=== PATIENT | female | born 1930 | race Caucasian/White ===

== ENCOUNTER 2016-08-02 17:31 | Emergency (ER) | payer BC ==
[~2016-08-02] VITALS: Ht 167.6 cm; Wt 43.0 kg
[~2016-08-02 17:31] MED LIST: CALCTAB5 PO; DABI150C PO; DILT-115 PO; LNX125 PO; LZL125 PO; METO25TA3 PO; MULT-506 PO; TMF75 PO
[2016-08-02 17:39] VITALS: TEMP 36.3; Ht 167.6 cm; Wt 43.0 kg
[2016-08-02] MEDS ORDERED: XYLOCAINE 1%/SOD BICARB 20 ML VIAL INFIL ONE (18:00)
[2016-08-02] MEDS ORDERED: FLNIN/ NAE (18:24)
[2016-08-02] MEDS ORDERED: CALC-393 PO (18:24)
[2016-08-02] MEDS ORDERED: FLVHFA220 INH (18:24)
[2016-08-02] MEDS ORDERED: PROAIR INH (18:24)
[2016-08-02 19:03] VITALS: BP 149/82; PULSE 78; O2SAT 96
--- NOTE | 2016-08-02 19:15 | EMERGENCY ROOM VISIT NOTE ---
ED Visit Note First contact with patient: 17:50 I have personally seen and evaluated the patient with the physician chef's assistant. I agree with the diagnostic/management decisions and have personally been involved in these decisions and agree with the diagnosis.
--- NOTE | 2016-08-02 20:27 | EMERGENCY ROOM VISIT NOTE ---
History First contact with patient: 17:50 Chief Complaint: LACERATION/CUT (NON-SUTURE) Stated Complaint: SKIN TEAR ON LF LEG Nursing Triage Summary: Patient has skin tear to inner left lower leg History of Present Illness The patient is a 86 year old female who presents to the Emergency Room with complaints of a laceration to her left lower leg. She reports this injury happened approximately 3 hours ago as she was walking and tripped over her shoe. She denies any significant active bleeding. She has not cleansed the wound. Tetanus immunization is up-to-date, and the patient rates her discomfort a 5 out of 10. Review of Systems 6 system review was performed and was negative except for pertinent positives and negatives as indicated in history of present illness Past Medical/Surgical History Medical Problems: (1) Asthma, Unspecified (2) Chronic Sinusitis Nos (3) COPD (chronic obstructive pulmonary disease) (4) Hypertension Nos (5) Pleural Effusion Nos Family History Insignificnat due to old age Social History Smoking Status: Former Smoker Marital Status: Housing Status: lives with significant other Occupation Status: retired Current/Historical Medications Scheduled Calcium Carbonate (Calcium), 600 MG PO DAILY Dabigatran Etexilate Mesylate (Pradaxa), 150 MG PO BID Diltiazem Hcl Ext Rel (Tiazac), 240 MG PO DAILY Fluticasone Propionate (Fluticasone Propionate), 1 SPRAY TYE DAILY Fluticasone Propionate (Flovent Hfa), 2 PUFF INH BID Indapamide (Indapamide), 1.25 MG PO DAILY Metoprolol Succ (Toprol Xl) (Toprol-Xl), 25 MG PO DAILY Multivitamin (Multivitamin), 1 TAB PO DAILY Scheduled PRN [Proair], 2 SPRAYS INH QID PRN for SOB/Wheezing Allergies Coded Allergies: Sulfa Drugs (Verified Allergy, Mild, RASH, 05/07/14) Physical Exam Vital Signs Date Time Temp Pulse Resp B/P Pulse Ox O2 Delivery O2 Flow Rate FiO2 08/02/16 19:03 78 16 149/82 96 Room Air 08/02/16 17:39 36.3 80 20 151/70 97 Room Air Physical Exam CONSTITUTIONAL: Healthy and well nourished. Alert and oriented X 3 with positive affect. HEENT: Normocephalic, atraumatic. Pupils equal, round and reactive. MUSCULOSKELETAL: Full range of motion of all joints without discomfort. INTEGUMENTARY: Examination of the left medial leg shows a large V-shaped 12 cm laceration without active bleeding. The flap is very thin. No soft tissue loss appreciated. No significant gross wound contamination. Pedal pulses are intact. NEUROLOGIC: Left foot and toes are sensory intact. Medical Decision & Procedures Procedure Laceration repair was performed under local anesthesia after receiving verbal consent from the patient. Using buffered 1% lidocaine without epinephrine, good local anesthesia was administered at the patient's request. The peripheral tissue was then cleansed with iodine. The flap was then retracted and the wound was copiously pressure irrigated with normal saline. At this point, I initially tried Dermabond to reinforce wound edges before attempted closure with 4-0 nylon simple interrupted sutures. This was mostly unsuccessful as the sutures wanted to cut right through the tissue. At this point, I then used benzoin on the wound edges, and the wound was grossly approximated with Steri-Strips. The patient tolerated the procedure well. ED Course Patient history and physical exam were performed. Nurse's notes were reviewed. Vital signs were reviewed and normal. The patient was provided additional verbal and written wound care instructions. Ice as needed for swelling. Tylenol as needed for pain. Suture removal in 12-14 days, or seek reevaluation sooner for any signs of wound infection. The patient was happy with plan of care, voiced understanding of all discharge instructions, and denied any significant pain at the time of discharge. The patient was also seen and evaluated by Dr. Cheney, ED attending physician, who agrees with workup and plan of care. Impression Primary Impression: Laceration of left leg Departure Information Referrals Pritesh Mckinnon M.D. (PCP) Patient Instructions My [facility] Problem Qualifiers Primary Impression: Laceration of left leg Encounter type: initial encounter Qualified Codes: S81.812A - Laceration without foreign body, left lower leg, initial encounter
[2016-08-18] MEDS ORDERED: AMOX500C3 PO (07:53)
[2016-08-18] MEDS ORDERED: AMOX875T PO (07:56)
[2016-08-19] MEDS ORDERED: KFL/250 PO (08:49)
== END 2016-08-02 19:09 | disposition home or self-care (01) ==
LOC: C.EDB 17:32 → C.EDD 19:09
DX: S81.812A Laceration without foreign body, left lower leg, initial encounter (principal); J44.9 Chronic obstructive pulmonary disease, unspecified; I10 Essential (primary) hypertension; Z79.899 Other long term (current) drug therapy; Z86.711 Personal history of pulmonary embolism; Z87.891 Personal history of nicotine dependence; W18.40XA Slipping, tripping and stumbling without falling, unspecified, initial encounter

== ENCOUNTER 2016-08-03 13:30 | Emergency (ER) | payer BC ==
[~2016-08-03] VITALS: Ht 167.6 cm; Wt 47.0 kg
[~2016-08-03 13:30] MED LIST changes: +CALC-393 PO; -CALCTAB5 PO; +FLNIN/ NAE; +FLVHFA220 INH; -LNX125 PO; +PROAIR INH; -TMF75 PO
[2016-08-03 13:34] VITALS: BP 138/74; PULSE 98; TEMP 36.8; O2SAT 96; Ht 167.6 cm; Wt 47.0 kg
--- NOTE | 2016-08-03 20:31 | EMERGENCY ROOM VISIT NOTE ---
History Report prepared by Lorenzo: Noelle Eng Under the Supervision of: Dr. Nino Garcia D.O. First contact with patient: 13:58 Chief Complaint: WOUND RECHECK Stated Complaint: FOLLOW UP ON LACERATION History of Present Illness The patient is a 86 year old female who presents to the Emergency Room for a wound recheck. The patient states that she went to an [employer] yesterday and tripped over her feet. She fell and hit her left lower leg on a chair. She has a wound to the left lower extremity. She came to the ED yesterday for evaluation. Her wound was repaired with sutures, and steri strips. She was told to return with any new or worsening symptoms. The patient' s states that they came back today because the wound was bleeding through the bandaging. The patient denies any new or worsening pain. She does take Pradaxa. Her tetanus is up to date. Source of History: patient, spouse/significant other Onset: yesterday Position: leg (left) Quality: other (wound) Timing: constant Review of Systems See HPI for pertinent positives & negatives. A total of 6 systems reviewed and were otherwise negative. Past Medical & Surgical Medical Problems: (1) Asthma, Unspecified (2) Chronic Sinusitis Nos (3) COPD (chronic obstructive pulmonary disease) (4) Hypertension Nos (5) Pleural Effusion Nos Family History Insignificnat due to old age Social History Smoking Status: Former Smoker Marital Status: Housing Status: lives with significant other Occupation Status: retired Current/Historical Medications Scheduled Calcium Carbonate (Calcium), 600 MG PO DAILY Dabigatran Etexilate Mesylate (Pradaxa), 150 MG PO BID Diltiazem Hcl Ext Rel (Tiazac), 240 MG PO DAILY Fluticasone Propionate (Fluticasone Propionate), 1 SPRAY TYE DAILY Fluticasone Propionate (Flovent Hfa), 2 PUFF INH BID Indapamide (Indapamide), 1.25 MG PO DAILY Metoprolol Succ (Toprol Xl) (Toprol-Xl), 25 MG PO DAILY Multivitamin (Multivitamin), 1 TAB PO DAILY Scheduled PRN [Proair], 2 SPRAYS INH QID PRN for SOB/Wheezing Allergies Coded Allergies: Sulfa Drugs (Verified Allergy, Mild, RASH, 4/16/17) Physical Exam Vital Signs Date Time Temp Pulse Resp B/P Pulse Ox O2 Delivery O2 Flow Rate FiO2 08/03/16 13:34 36.8 98 18 138/74 96 Room Air Physical Exam GENERAL: alert, sitting up in bed, well appearing, well nourished, no distress, non-toxic EYE EXAM: normal conjunctiva OROPHARYNX: Lips, buccal mucosa, and tongue normal and mucous membranes are moist NECK: supple, no nuchal rigidity, no adenopathy, non-tender LUNGS: Clear to auscultation. Normal chest wall mechanics HEART: no murmurs, S1 normal and S2 normal ABDOMEN: abdomen soft, non-tender, normo-active bowel sounds, no masses, no rebound or guarding. LOWER EXTREMITIES: Left lower extremity with a large laceration/avulsion on the left calf, 3 loose steri-strips were removed with multiple steri-strips currently in place with underlying sutures, no active bleeding. No surrounding erythema or discharge. DP are 2/4. Flexion/extension of hip, knee, ankle intact. Gross sensation intact. NEURO EXAM: Normal sensorium Medical Decision & Procedures ED Course ED COURSE: Vital signs were reviewed and showed normal vitals. The patients medical record was reviewed The above diagnostic studies were performed and reviewed. ED treatments and interventions as stated above. 1358: The patient was evaluated in room A10. A complete history and physical examination was performed. 1425: Upon reevaluation, the patient is resting comfortably. She was able to remove her long underwear. I discussed my findings with the patient and she understands and agrees with the treatment plan. Based on the patients age, coexisting illnesses, exam and lab findings the decision to treat as an outpatient was made. The patient remained stable while under my care. The patient appeared well at the time of discharge. Medical Decision Differential diagnosis includes etiologies such as cellulitis, abscess, MRSA infection, DVT, necrotizing fasciitis, dermatitis, drug eruption, as well as others were entertained. Patient is an 86-year-old female who presents the ER following a laceration repair performed yesterday here in the ER. Patient had several sutures and multiple Steri-Strips placed due to the large avulsion. On my exam there is no active bleeding. The wound is closely approximated. I removed 3 Steri-Strips. Her tetanus is up-to-date. There is no active bleeding and the wound was redressed. I had a long discussion with the patient and she notes that she is been very active recently I stressed the importance of not putting stress/ strain on the wound especially since she has a propensity to bleed on her blood thinner. I felt there is no additional benefit to removing the Steri-Strips and replacing them at this time. She was discharged follow-up with her primary care doctor in the next 3-5 days. Discussed with Pt concerning signs and symptoms to watch out for. Pt was instructed to follow up with their PCP and discussed with the patient their option to return to the ED at anytime for persistent or worsening symptoms. The appropriate anticipatory guidance and out- patient management, including indications for return to the emergency department , were explained at length to the patient and understood. Impression Primary Impression: Encounter for wound re-check Scribe Attestation The scribe's documentation has been prepared under my direction and personally reviewed by me in its entirety. I confirm that the note above accurately reflects all work, treatment, procedures, and medical decision making performed by me. Departure Information Dispostion Home / Self-Care Referrals No Doctor, Assigned (PCP) Pritesh Mckinnon M.D. Forms HOME CARE DOCUMENTATION FORM, IMPORTANT VISIT INFORMATION, WORK / SCHOOL INSTRUCTIONS Patient Instructions ED Laceration All, My [facility] Additional Instructions Please follow up with your primary care doctor with in the next 3-5 days. Any worsening of your symptoms, please return to the ED immediately. This includes persistent bleeding, surrounding redness, fevers greater than 100.4, worsening pain, or any other concerning signs or symptoms from your standpoint. Please keep the wound dressed and clean. Please follow up with your primary care doctor in the next 3-5 days.
[2016-08-18] MEDS ORDERED: AMOX500C3 PO (07:53)
[2016-08-18] MEDS ORDERED: AMOX875T PO (07:56)
[2016-08-19] MEDS ORDERED: KFL/250 PO (08:49)
== END 2016-08-03 15:01 | disposition home or self-care (01) ==
LOC: C.EDB 13:32 → C.EDA 15:01
DX: Z48.00 Encounter for change or removal of nonsurgical wound dressing (principal); J45.909 Unspecified asthma, uncomplicated; J44.9 Chronic obstructive pulmonary disease, unspecified; I10 Essential (primary) hypertension; Z87.891 Personal history of nicotine dependence

== ENCOUNTER → 2017-11-04 | Outpatient (CLI) | payer BC ==
[~2017-11-04] MED LIST changes: -DILT-115 PO
[2017-11-04 15:54] LABS: BLOOD UREA NITROGEN 18 mg/dl (7-18); CREATININE 0.97 mg/dl (0.60-1.20)
== END | disposition home or self-care (01) ==
LOC: C.LAB1850 14:06
PROVIDERS: ATTEND Ophthalmology
DX: Z01.89 Encounter for other specified special examinations (principal)

== ENCOUNTER → 2017-12-09 | Outpatient (CLI) | payer BC ==
[2017-12-09 15:38] LABS: BASO % 0.5 %; BASO ABS # 0.06 K/uL (0-0.2); EOS % 4.7 %; EOS ABS # 0.53 K/uL (0-0.5); HEMATOCRIT 41.6 % (37-47); HEMOGLOBIN 13.9 g/dL (12.0-16.0); IG# 0.03 K/uL (0.00-0.02); LYMPH % 27.3 %; LYMPH ABS # 3.08 K/uL (1.2-3.4); MEAN CORPUSCULAR HEMOGLOBIN 30.8 pg (25-34); MEAN CORPUSCULAR HGB CONC 33.4 g/dl (32-36); MEAN PLATELET VOLUME 9.9 fL (7.4-10.4); MONO % 7.5 %; MONO ABS # 0.85 K/uL (0.11-0.59); NEUT % 59.7 %; NEUT ABS # 6.74 K/uL (1.4-6.5); PLATELET COUNT 259 K/uL (130-400); RED CELL DISTRIBUTION WIDTH CV 14.6 % (11.5-14.5); RED CELL DISTRIBUTION WIDTH SD 49.3 fL (36.4-46.3); WHITE BLOOD COUNT 11.29 K/uL (4.8-10.8)
[2017-12-09 16:01] LABS: BLOOD UREA NITROGEN 17 mg/dl (7-18); CALCIUM 9.6 mg/dl (8.5-10.1); CARBON DIOXIDE 30 mmol/L (21-32); CREATININE 0.98 mg/dl (0.60-1.20); GLUCOSE 88 mg/dl (70-99); POTASSIUM 3.7 mmol/L (3.5-5.1); SODIUM 138 mmol/L (136-145)
[2017-12-10 06:13] LABS: HEMOGLOBIN A1C 5.6 % (4.5-5.6)
== END | disposition home or self-care (01) ==
LOC: C.LAB1850 14:32
PROVIDERS: ATTEND Internal Medicine
DX: I10 Essential (primary) hypertension (principal)

== ENCOUNTER 2019-04-27 13:02 | Inpatient (IN) ==
[2019-04-27] MEDS ORDERED: SODIUM CHLORIDE 0.9% 500 ML IV ONE (13:25)
[2019-04-27 14:00] LABS: Basophils # (auto) 0.01 K/uL (0-0.2); Basophils % (auto) 0.1 %; Eosinophils # (auto) 0.07 K/uL (0-0.5); Eosinophils % (auto) 0.7 %; Hematocrit (blood only) 39.3 % (37-47); Hemoglobin 12.9 g/dL (12.0-16.0); Immature Granulocytes # (auto) 0.04 K/uL (0.00-0.02); Immature Granulocytes % (auto) 0.4 %; Lymphocytes # (auto) 2.72 K/uL (1.2-3.4); Lymphocytes % (auto) 26.5 %; Mean Corpuscular Hgb Conc 32.8 g/dL (32-36); Mean Corpuscular Volume 94.5 fL (80-100); Mean Platelet Volume 9.6 fL (7.4-10.4); Monocytes % (auto) 6.8 %; Neutrophils # (auto) 6.73 K/uL (1.4-6.5); Neutrophils % (auto) 65.5 %; Platelet Count 354 K/uL (130-400); RDW Coefficient of Variation 15.2 % (11.5-14.5); Red Blood Count 4.16 M/uL (4.2-5.4); White Blood Count 10.27 K/uL (4.8-10.8)
--- NOTE | 2019-04-27 14:18 | XRay Report ---
XR chest 1V portable CLINICAL HISTORY: Atypical chest pain COMPARISON STUDY: 12/13/2018 FINDINGS: There is a mild scoliosis. The heart is the upper limits of normal in size. The patient is hyperinflated. There is no focal pulmonary consolidation. There is no failure. There are chronic pleu ral changes at the left lung base. 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 Th ere is no pneumothorax. There is left apical pleural calcification. IMPRESSION: No active disease in the chest. ACT 112: Negative or not required by law. Electronically signed by: Rahul Andrade M.D. 04/27/2019 2:17 PM
[2019-04-27 14:25] LABS: Alanine Aminotransferase 12 U/L (12-78); Albumin Level 3.1 gm/dl (3.4-5.0); Aspartate Aminotransferase 13 U/L (15-37); BUN Creatinine Ratio 22.3 (10-20); Blood Urea Nitrogen 20 mg/dl (7-18); Calcium 9.6 mg/dl (8.5-10.1); Carbon Dioxide 30 mmol/L (21-32); Chloride 109 mmol/L (98-107); Est GFR (African American) 66.2; Est GFR (Non-African American) 57.1; Glucose 92 mg/dl (70-99); Lipase 122 U/L (73-393); Magnesium 2.3 mg/dl (1.8-2.4); Sodium 143 mmol/L (136-145)
[2019-04-27 14:38] LABS: Albumin Globulin Ratio 0.7 (0.9-2); Alkaline Phosphatase 58 U/L (45-117); Bilirubin,Total 0.8 mg/dl (0.2-1); Globulin 4.2 gm/dl (2.5-4.0); Phosphorus 2.6 mg/dl (2.5-4.9); Total Protein 7.3 gm/dl (6.4-8.2); Troponin I 0.047 ng/ml (0-0.045)
[2019-04-27 14:51] LABS: Appearance Urine Clear (Clear); Bacteria Urine Automated Negative (Negative); Blood Urine Negative (Negative); Color Urine Dark Yellow; Epithelial Cell Urine Auto 20-30 /lpf (0-5); Glucose Urine UA Negative (Negative); Ketones Urine Trace (Negative); Leukocyte Esterase Urine Trace (Negative); Nitrite Urine Negative (Negative); Protein Urine 1+ (Negative); RBC Urine Automated 0-4 /hpf (0-4); Specific Gravity Urine 1.026 (1.000-1.030); Urobilinogen Urine Negative (Negative)
[2019-04-27 14:59] LABS: Bilirubin Urine Negative (Negative); Ictotest Urine Negative (Negative)
--- NOTE | 2019-04-27 15:12 | CT Scan Report ---
CT head/brain wo con CT DOSE: 1074.96 mGy.cm HISTORY: Mental status change weakness, confusion TECHNIQUE: Multiaxial CT images of the head were performed without the use of intravenous contrast. A dose lowering technique was utilized adhering to the principles of ALARA. Comparison: 12/04/2018 Findings: Moderate mucosal thickening of the sphenoid and ethmoid sinuses. Mastoid air cells show min imal sclerosis. The brain specifically shows evidence for generalized atrophy. 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 There are no new or interval findings. There is no midline shift. There is mild compensatory prominence of the ventricular system. Impression: Chronic and pre-existing change. No acute process. Mucosal thickening of the sphenoid and ethmoid sin uses. ACT 112: Negative or not required by law. The above report was generated using voice recognition software. It may contain grammatical, syntax or spelling errors. Electronically signed by: Ky Miner M.D. 04/27/2019 3:11 PM
--- NOTE | 2019-04-27 15:34 | Electrocardiogram Report ---
Test Reason : Blood Pressure : / mmHG Vent. Rate : 058 BPM Atrial Rate : 066 BPM P-R Int : 000 ms QRS Dur : 086 ms QT Int : 386 ms P-R-T Axes : 000 087 -75 degrees QTc Int : 378 ms Poor data quality, interpretation may be adversely affected Atrial fibrillation with slow ventricular response Voltage criteria for left ventricular hypertrophy Cannot rule out Septal infarct (cited on or before 14-OCT-2018) Abnormal ECG When compared with ECG of 13-DEC-2018 17:32, Atrial fibrillation has replaced Atrial flutter Vent. rate has decreased BY [address] no longer elevated in Inferior leads ST no longer depressed in Lateral leads Confirmed by Joey Amador ([id number]) on 04/27/2019 3:33:50 PM Referred By: REFERRED SELF Confirmed By:Joey Amador
--- NOTE | 2019-04-27 18:39 | Emergency Department Note ---
Entered by Kylie Spencer acting as a scribe for Forest Pettit MD History of Present Illness General Chief complaint: Weakness Stated complaint: WEAKNESS, DEMENTIA Time Seen by Provider: 04/27/19 13:24 Source: family and other (physician) History of Present Illness Onset (ago): day(s) 1 Location: head (weakness) Severity: similar to prior episodes Pain Consistency: + other (persistent) Maximum Pain Intensity: 0 Quality: + other (weakness) Exacerbated By: + other (diuretic) Associated symptoms: + confusion, + weakness and + other (tachycardia, inability to urinate) The patient is an 89 year old female presenting to the Emergency Department complaining of persistent weakness starting 1 day ago. The patients reports that the patient is very weak and confused. He states that the patient has experienced these symptoms before as she has dementia but that her confusion is worse than normal. He explains that the patient takes a lot of medications and that something may be wrong with her diuretic. He notes that the patient follows with Dr. Mckinnon bilingual teacher aide. He adds that the patient hasnt been able to urinate. The patients bilingual teacher aide Dr. Mckinnon called and reported that he referred the patient to the Emergency Room today because he feared the patients diuretic was causing the patient to become tachycardic. 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 He notes that the patient has an appointment with himself tomorrow. Home Medications Home Medications Medication Instructions Recorded Confirmed Type apixaban [Eliquis] 2.5 mg PO AMPM 10/14/18 04/27/19 History indapamide 1.25 mg tablet 1.25 mg PO MOWEFR tab 11/26/18 04/27/19 History metoprolol succinate 50 mg 50 mg PO QAM 01/18/19 04/27/19 History tablet,extended release 24 hr digoxin 125 mcg PO QAM 04/27/19 04/27/19 History fluticasone propionate [Flonase 2 sprays INTRANASAL QAM 04/27/19 04/27/19 History Allergy Relief] fluticasone propionate [Flovent 2 puffs INHALATION QAM 04/27/19 04/27/19 History HFA] megestrol 400 mg PO QAM 04/27/19 04/27/19 History memantine 5 mg PO AMPM 04/27/19 04/27/19 History Allergies Allergy/AdvReac Type Severity Reaction Status Date / Time Sulfa (Sulfonamide Allergy Mild RASH Verified 04/27/19 14:10 Antibiotics) INDIGO Inhibitors Allergy Unknown Rash Verified 04/27/19 14:10 amoxicillin [From Augmentin] Allergy Unknown Diarrhea Verified 04/27/19 14:10 clavulanic acid Allergy Unknown Diarrhea Verified 04/27/19 14:10 [From Augmentin] Past Med/Surg History Medical History Abnormal electrocardiogram (Acute) Acquired deviated nasal septum (Acute) Chronic sinusitis (Acute) COPD (chronic obstructive pulmonary disease) (Chronic) COPD (chronic obstructive pulmonary disease) (Chronic) Dementia (Chronic) Glaucoma of both eyes (Acute) 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) Hyperglycemia (Acute) Hypertension (Chronic) Intrinsic asthma (Chronic) Laceration of arm (Inactive) Nasal polyps Orthostatic hypotension (Resolved) Osteoporosis (Acute) Paroxysmal atrial fibrillation (Chronic) Pleural effusion on left (Resolved) Pneumonia (Resolved) Premature ventricular contractions (Acute) Syncope (Resolved) Surgical History Hx of cataract surgery Family History Mother Hypertension Kidney disease Social History Preferred Language: Croatian Communication Ability: Impaired 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 and A total of 10 systems reviewed and were otherwise negative Physical Exam Vital Signs Vital Signs - 24 hr 04/27/19 13:17 04/27/19 14:02 04/27/19 14:09 Pulse Rate 105 H 58 L 66 Pulse Rate [Right Finger] Pulse Rate from SpO2 Sensor Pulse Rhythm Regular Pulse Strength Normal Respiratory Rate 22 25 H 33 H Respiratory Effort / Characteristics Non-Labored Respiratory Depth Normal Respiratory Pattern Regular Blood Pressure 150/67 H 153/83 H Blood Pressure [Left Arm] Blood Pressure Mean 94 103 Blood Pressure Mean [Left Arm] Blood Pressure Position Sitting Pulse Oximetry 98 Oxygen Delivery Method Room Air Sepsis Recent Fever Within 48 Hours No Sepsis Action Taken by Nursing No Action Required 04/27/19 14:25 04/27/19 14:30 04/27/19 14:31 Pulse Rate 49 L 65 Pulse Rate [Right Finger] 64 Pulse Rate from SpO2 Sensor Pulse Rhythm Pulse Strength Respiratory Rate 24 22 28 H Respiratory Effort / Characteristics Respiratory Depth Respiratory Pattern Blood Pressure 120/84 Blood Pressure [Left Arm] 120/84 Blood Pressure Mean 112 Blood Pressure Mean [Left Arm] 96 Blood Pressure Position Pulse Oximetry 99 Oxygen Delivery Method Room Air Sepsis Recent Fever Within 48 Hours Sepsis Action Taken by Nursing 04/27/19 15:04 04/27/19 15:30 04/27/19 16:00 Pulse Rate 41 L 58 L Pulse Rate [Right Finger] Pulse Rate from SpO2 Sensor 70 67 Pulse Rhythm Pulse Strength Respiratory Rate 9 L 31 H 24 Respiratory Effort / Characteristics Respiratory Depth Respiratory Pattern Blood Pressure 148/71 H 135/53 L Blood Pressure [Left Arm] Blood Pressure Mean 93 81 Blood Pressure Mean [Left Arm] Blood Pressure Position Pulse Oximetry 73 L 93 Oxygen Delivery Method Sepsis Recent Fever Within 48 Hours Sepsis Action Taken by Nursing 04/27/19 16:01 04/27/19 16:30 04/27/19 17:00 Pulse Rate 59 L 53 L 60 Pulse Rate [Right Finger] Pulse Rate from SpO2 Sensor 70 Pulse Rhythm Pulse Strength Respiratory Rate 20 19 15 Respiratory Effort / Characteristics Respiratory Depth Respiratory Pattern Blood Pressure 131/46 L Blood Pressure [Left Arm] Blood Pressure Mean 79 Blood Pressure Mean [Left Arm] Blood Pressure Position Pulse Oximetry 94 Oxygen Delivery Method Sepsis Recent Fever Within 48 Hours Sepsis Action Taken by Nursing 04/27/19 17:32 04/27/19 17:33 04/27/19 18:00 Pulse Rate 66 64 75 Pulse Rate [Right Finger] Pulse Rate from SpO2 Sensor Pulse Rhythm Pulse Strength Respiratory Rate 26 H 22 15 Respiratory Effort / Characteristics Respiratory Depth Respiratory Pattern Blood Pressure 165/62 H Blood Pressure [Left Arm] Blood Pressure Mean 98 Blood Pressure Mean [Left Arm] Blood Pressure Position Pulse Oximetry Oxygen Delivery Method Sepsis Recent Fever Within 48 Hours Sepsis Action Taken by Nursing 04/27/19 18:01 04/27/19 18:30 01/08/20 18:31 Pulse Rate 65 62 58 L Pulse Rate [Right Finger] Pulse Rate from SpO2 Sensor Pulse Rhythm Pulse Strength Respiratory Rate 23 20 17 Respiratory Effort / Characteristics Respiratory Depth Respiratory Pattern Blood Pressure 183/83 H 140/64 Blood Pressure [Left Arm] Blood Pressure Mean 111 98 Blood Pressure Mean [Left Arm] Blood Pressure Position Pulse Oximetry Oxygen Delivery Method Sepsis Recent Fever Within 48 Hours Sepsis Action Taken by Nursing 04/27/19 18:32 Pulse Rate 63 Pulse Rate [Right Finger] Pulse Rate from SpO2 Sensor Pulse Rhythm Pulse Strength Respiratory Rate 20 Respiratory Effort / Characteristics Respiratory Depth Respiratory Pattern Blood Pressure Blood Pressure [Left Arm] Blood Pressure Mean Blood Pressure Mean [Left Arm] Blood Pressure Position Pulse Oximetry Oxygen Delivery Method Sepsis Recent Fever Within 48 Hours Sepsis Action Taken by Nursing GENERAL: Pleasantly confused Awake, alert, cachectic-appearing, in no distress HENT: Normocephalic, atraumatic. Oropharynx with dry mucous membranes and otherwise unremarkable. EYES: Normal conjunctiva. Sclera non-icteric. NECK: Supple. No nuchal rigidity. FROM. No JVD. RESPIRATORY: CTAB. CARDIAC: Regular rate, Irregular rhythm. Extremities warm and well perfused. Pulses equal. ABDOMEN: Soft, non-distended. No tenderness to palpation. No rebound or guarding. No masses. RECTAL: Deferred. MUSCULOSKELETAL: Chest examination reveals no tenderness. The back is symmetrical on inspection without obvious abnormality. There is no CVA tenderness to palpation. No joint edema. LOWER EXTREMITIES: Calves are equal size bilaterally and non-tender. No edema. No discoloration. NEURO: Normal sensorium. No sensory or motor deficits noted. Moving all extremities equally. SKIN: No rash or jaundice noted. Course Course 1326: The patient was evaluated in room C2B, and a complete history and physical examination were performed. 1639: I reevaluated the patient at this time and updated she and her on her lab work and imaging studies. 1655: I discussed the patients case with Dr. Mckinnon bilingual teacher aide who agrees t hat there could be an underlying tachycardia bradycardia syndrome. Recommends bringing the patient in for observation. He adds to hold off on the patients beta ming. 1710: I discussed the patients case with Dr. Peters neuropsychology division chief. Agrees admission for observation is reasonable. 1730: I discussed the patients case with Dr. Edgar [facility] hospitalist. She will evaluate the patient for further management. Administered Medications Apixaban (Eliquis) 2.5 mg PO BID DINO Stop: 05/27/19 20:59 Last Admin: 04/27/19 21:00 Dose: 2.5 mg Documented by: [id number] Sodium Chloride (Nss 1000ml) 1,000 mls @ 80 mls/hr IV .[id number] DINO Stop: 04/28/19 08:16 Last Admin: 04/27/19 20:59 Dose: 80 mls/hr Documented by: [id number] Ceftriaxone Sodium 2,000 mg/ (Dextrose) 70 mls @ 140 mls/hr IV Q24H DINO Stop: 05/02/19 19:59 Last Infusion: 04/27/19 21:30 Dose: 0 mls/hr Documented by: [id number] Admin: 04/27/19 21:00 Dose: 140 mls/hr Documented by: [id number] Memantine (Namenda) 5 mg PO BID DINO Stop: 05/27/19 20:59 Last Admin: 04/27/19 21:00 Dose: 5 mg Documented by: [id number] Discontinued Medications Sodium Chloride (Nss) 500 mls @ 999 mls/hr IV .Q31M ONE Stop: 04/27/19 13:55 Last Infusion: 04/27/19 15:17 Dose: 0 mls/hr Documented by: [id number] Admin: 04/27/19 14:42 Dose: 999 mls/hr Documented by: [id number] Medical Decision Making Differential Diagnosis Differential Diagnosis includes but is not limited to dehydration, stroke, anemia, hypoglycemia, hyponatremia, hypernatremia, urinary tract infection, pneumonia, bronchitis, sepsis, gastroenteritis, additional abdominal pathology, metabolic abnormalities and infections. Medical Records Attestation: I reviewed the patient's medical records. Home Medications Current Medication List: was personally reviewed by me Laboratory Data Attestation: I reviewed the patient's lab results. Result diagrams: 04/27/19 13:55 04/27/19 13:55 Lab Results 04/27/19 04/27/19 04/27/19 Range/Units 13:55 13:55 14:27 WBC 10.27 (4.8-10.8) K/uL RBC 4.16 L (4.2-5.4) M/uL Hgb 12.9 (12.0-16.0) g/dL Hct 39.3 (37-47) % MCV 94.5 (80-100) fL MCH 31.0 (25-34) pg MCHC 32.8 (32-36) g/dL RDW Std Deviation 53.0 H (36.4-46.3) fL RDW Coeff of Zack 15.2 H (11.5-14.5) % Plt Count 354 (130-400) K/uL MPV 9.6 (7.4-10.4) fL Immature Gran % (Auto) 0.4 % Neut % (Auto) 65.5 % Lymph % (Auto) 26.5 % [place] % (Auto) 6.8 % Eos % (Auto) 0.7 % Baso % (Auto) 0.1 % Immature Gran # (Auto) 0.04 H (0.00-0.02) K/uL Neut # (Auto) 6.73 H (1.4-6.5) K/uL Lymph # (Auto) 2.72 (1.2-3.4) K/uL [place] # (Auto) 0.70 H (0.11-0.59) K/uL Eos # (Auto) 0.07 (0-0.5) K/uL Baso # (Auto) 0.01 (0-0.2) K/uL Sodium 143 (136-145) mmol/L Potassium 4.0 (3.5-5.1) mmol/L Chloride 109 H (98-107) mmol/L Carbon Dioxide 30 (21-32) mmol/L Anion Gap 4.0 (3-11) BUN 20 H (7-18) mg/dl Creatinine 0.90 (0.6-1.2) mg/dl Est Cr Clr Drug Dosing Not Reportable Est GFR ( Amer) 66.2 Est GFR (Non-Af Amer) 57.1 BUN/Creatinine Ratio 22.3 H (10-20) Glucose 92 (70-99) mg/dl Calcium 9.6 (8.5-10.1) mg/dl Phosphorus 2.6 (2.5-4.9) mg/dl Magnesium 2.3 (1.8-2.4) mg/dl Total Bilirubin 0.8 (0.2-1) mg/dl AST 13 L (15-37) U/L ALT 12 (12-78) U/L Alkaline Phosphatase 58 (45-117) U/L Troponin I 0.047 H* (0-0.045) ng/ml Total Protein 7.3 (6.4-8.2) gm/dl Albumin 3.1 L (3.4-5.0) gm/dl Globulin 4.2 H (2.5-4.0) gm/dl Albumin/Globulin Ratio 0.7 L (0.9-2) Lipase 122 (73-393) U/L TSH 2.120 (0.300-4.500) uIu/ml Urine Color Dark Yellow Urine Appearance Clear (Clear) Urine pH 7.0 (4.5-7.5) Ur Specific [place] 1.026 (1.000-1.030) Urine Protein 1+ H (Negative) Urine Glucose (UA) Negative (Negative) Urine Ketones Trace H (Negative) Urine Blood Negative (Negative) Urine Nitrite Negative (Negative) Urine Bilirubin Negative (Negative) Urine Urobilinogen Negative (Negative) Ur Leukocyte Esterase Trace H (Negative) Urine WBC (Auto) 1-5 (0-5) /hpf Urine RBC (Auto) 0-4 (0-4) /hpf U Hyaline Cast (Auto) 1-5 (0-5) /lpf U Epithel Cells (Auto) 20-30 H (0-5) /lpf Urine Bacteria (Auto) Negative (Negative) Imaging Data Radiologist's Impression: Radiology results as stated below per my review and the radiologist's interpretation: CT head/brain wo con CT DOSE: 1074.96 mGy.cm HISTORY: Mental status change weakness, confusion TECHNIQUE: Multiaxial CT images of the head were performed without the use of intravenous contrast. A dose lowering technique was utilized adhering to the principles of ALARA. Comparison: 12/04/2018 Findings: Moderate mucosal thickening of the sphenoid and ethmoid sinuses. Mastoid air cells show minimal sclerosis. The brain specifically shows evidence for generalized atrophy. 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 There are no new or interval findings. There is no midline shift. There is mild compensatory prominence of the ventricular system. Impression: Chronic and pre-existing change. No acute process. Mucosal thickening of the sphenoid and ethmoid sinuses. ACT 112: Negative or not required by law. The above report was generated using voice recognition software. It may contain grammatical, syntax or spelling errors. Electronically signed by: Ky Miner M.D. 04/27/2019 3:11 PM XR chest 1V portable CLINICAL HISTORY: Atypical chest pain COMPARISON STUDY: 12/13/2018 FINDINGS: There is a mild scoliosis. The heart is the upper limits of normal in size. The patient is hyperinflated. There is no focal pulmonary consolidation. There is no failure. There are chronic pleural changes at the left lung base. 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 There is no pneumothorax. There is left apical pleural calcification. IMPRESSION: No active disease in the chest. ACT 112: Negative or not required by law. Electronically signed by: Rahul Andrade M.D. 04/27/2019 2:17 PM ECG Data Attestation: I personally reviewed and interpreted this ECG as follows: Indication: + weakness Rate (beats per minute): 58 Rhythm: + atrial fibrillation ECG ST segments: no ST elevation ECG Findings: + Other (ST and T wave abnormalities. QT-c 378. QRS 86.) Comparison ECG Date: from (12/13/18) Change: no significant change Blood Pressure Blood Pressure Findings: Elevated blood pressure Blood Pressure Disposition: further management by hospitalist MDM Narrative The patient is a pleasant 84-year-old woman with a past medical history of dementia, A. fib on Eliquis who presents emergency department with generalized weakness and confusion from her baseline with "weak spells"/near syncope per HPI. On arrival the patient is pleasantly confused but no acute distress, afebrile with stable vital signs. Patient's rate initially was in the low 100s and there was report of having episodes of tachycardia prior to arrival. Appears cachectic and dry. Moving all extremities equally without focal deficits. EKG demonstrates A. fib without overt acute ischemia and was similar to prior. Rate at this time was in the 50s. Chest x-ray negative for acute process. CT head negative for acute process, otherwise old left parietal occipital infarct which is unchanged. WBC, H/H and platelets within normal limits. Chemistry without acidosis. Electrolytes and LFTs unremarkable. Troponin slightly elevated at 0.047 which may be related to the patient's clinically dry appearance. On reevaluation it was noted that the patient would have fluctuating heart rate that would go down as low as the 40s. Thus, suspicion was raised for possible underlying tachybradycardia syndrome. I did recommend to the patient and her admission for further monitoring. Case was additionally discussed with Dr. Mckinnon who also recommended admission for observation. I did also discuss the case with not any cardiology, Dr. Peters, who the patient follows with and also agreed that admission would be reasonable. Case was discussed with Dr Edgar, [facility] hospitalist, who evaluate the patient for admission. Impression & Plan Near syncope, Elevated troponin, Dehydration, Tachycardia, Bradycardia, Atrial fibrillation, On apixaban therapy Discharge Plan Visit Data *Final* Discharge Date/Time: 04/27/19 19:20 Chief Complaint: Weakness Stated Complaint: WEAKNESS, DEMENTIA ED Provider: Forest Pettit Discharge Problem: Near syncope, Elevated troponin, Dehydration, Tachycardia, Bradycardia, Atrial fibrillation, On apixaban therapy Patient Disposition: Admitted As Inpatient Discharge Instructions Interventions: ED Discharge Assessment Last Done: 04/27/19 19:20 The scribe's documentation has been prepared under my direction and personally reviewed by me in its entirety. I confirm that the note above accurately reflects all work, treatment, procedures, and medical decision making performed by me.
[2019-04-27] MEDS ORDERED: ALUMINUM/MAGNESIUM SUSP 30 ML UDC PO PRN (19:47)
[2019-04-27] MEDS ORDERED: POLYETHYLENE (MIRALAX) 17 GM PACK PO PRN (19:47)
[2019-04-27] MEDS ORDERED: MAGNESIUM HYDROXIDE SUSP 30 ML UDC PO PRN (19:47)
[2019-04-27] MEDS ORDERED: ONDANSETRON INJ 2 MG/ML 2 ML VIAL IV PRN (19:47)
[2019-04-27] MEDS ORDERED: SODIUM CHLORIDE 0.9% 1000ML 1,000 ML IV SCH (19:47)
[2019-04-27] MEDS ORDERED: ACETAMINOPHEN 325 MG TAB PO PRN (19:47)
[2019-04-27] MEDS ORDERED: cefTRIAXone SODIUM 2,000 MG/70 ML BAG IV SCH (20:00)
[2019-04-27] MEDS: cefTRIAXone SODIUM 2,000 MG in DEXTROSE 5% 50 ML IV SCH (21:00)
[2019-04-27] MEDS: APIXABAN 2.5 MG TAB PO SCH (21:00)
[2019-04-27] MEDS: MEMANTINE HCL 5 MG TAB PO SCH (21:00)
--- NOTE | 2019-04-28 02:48 | History & Physical Report ---
Date of Service April 27, 2019 Assessment & Plan (1) Elevated troponin: Admit to telemetry for observation Vital signs every 4 hours Trend down troponins Continue home medicine apixaban 2.5 mg p.o. twice daily Digoxin 125 mg p.o. every morning Metoprolol succinate 50 mg p.o. every morning DVT prophylaxis with apixaban Full code Present on Admission?: Yes (2) Dehydration: Continue gentle IV fluid hydration Follow-up electrolytes closely Present on Admission?: Yes (3) Near syncope: Most likely provoked by dehydration CT of the head no acute findings Present on Admission?: Yes (4) Atrial fibrillation: Continue apixaban 2.5 mg p.o. twice daily Present on Admission?: Yes (5) Dementia: Continue memantine 5 mg p.o. twice daily Follow-up with Dr. Greenfield neurology Present on Admission?: Yes (6) Hypertension: Stable , continue digoxin 125 MCG's p.o. every morning, metoprolol 50 mg p.o. every morning, continue indapamide 1.25 mg p.o. Thursday/Thursday/Thursday. Present on Admission?: Yes (7) Intrinsic asthma: Stable, continue fluticasone propionate 2 puffs inhalation every morning, and fluticasone propionate 2 sprays intranasal every morning. Present on Admission?: Yes (8) Failure to thrive: Continue Fernando Strohl 400 mg p.o. every morning Present on Admission?: Yes History of Present Illness Chief Complaint: Elevated troponin ,confusion, tachycardia-bradycardia syndrome Primary Care Provider: Pritesh Mckinnon MD Patient is a 89 years old female with past medical history of paroxysmal atrial fibrillation on Eliquis, hypertension, glaucoma of both eyes, dementia who presents to the emergency room complaining of persistent weakness starting 1 day ago. The patient's reports that patient is very weak and confused. He states that the patient has experienced these symptoms before she has dementia but that her confusion is worse than normal. He explains that patient takes a lot of medications and sometimes she makes them up. Patient is followed by nephrology Dr. Mckinnon. For the past 24 hours patient was not able to urinate. Patient is poor historian and it is difficult to obtain ROS with her. The major history was obtained from her . EKG reviewed and shows atrial fibrillation has replaced atrial flutter. Ventricular rate is decreased by [address] no longer elevated in inferior leads. ST no longer depressed in the lateral leads. Patient sees Dr. 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 Donepezil was recently discontinued because patient could not tolerate it. Dr. Greenfield continued with Namenda since patient tolerates that very well. Patient supposed to follow-up with him in 8 months. Labs are reviewed: WBC 7.27, hemoglobin 12.9, hematocrit 39.3, platelets 354, sodium 143, potassium 4, chloride 109, anion gap 4, BUN 20. Decision was made to admit patient to telemetry for observation for dehydration, acute on chronic confusion, and elevated troponin. Allergies Allergy/AdvReac Type Severity Reaction Status Date / Time Sulfa (Sulfonamide Allergy Mild RASH Verified 04/27/19 14:10 Antibiotics) INDIGO Inhibitors Allergy Unknown Rash Verified 04/27/19 14:10 amoxicillin [From Augmentin] Allergy Unknown Diarrhea Verified 04/27/19 14:10 clavulanic acid Allergy Unknown Diarrhea Verified 04/27/19 14:10 [From Augmentin] Home Medications Home Medications Medication Instructions Recorded Confirmed Type apixaban [Eliquis] 2.5 mg PO AMPM 10/14/18 04/27/19 History indapamide 1.25 mg tablet 1.25 mg PO MOWEFR tab 11/26/18 04/27/19 History metoprolol succinate 50 mg 50 mg PO QAM 01/18/19 04/27/19 History tablet,extended release 24 hr digoxin 125 mcg PO QAM 04/27/19 04/27/19 History fluticasone propionate [Flonase 2 sprays INTRANASAL QAM 04/27/19 04/27/19 History Allergy Relief] fluticasone propionate [Flovent 2 puffs INHALATION QAM 04/27/19 04/27/19 History HFA] megestrol 400 mg PO QAM 04/27/19 04/27/19 History memantine 5 mg PO AMPM 04/27/19 04/27/19 History Past Med/Surg History Medical History Abnormal electrocardiogram (Acute) Acquired deviated nasal septum (Acute) Chronic sinusitis (Acute) COPD (chronic obstructive pulmonary disease) (Chronic) COPD (chronic obstructive pulmonary disease) (Chronic) Dementia (Chronic) Glaucoma of both eyes (Acute) 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) Hyperglycemia (Acute) Hypertension (Chronic) Intrinsic asthma (Chronic) Laceration of arm (Inactive) Nasal polyps Orthostatic hypotension (Resolved) Osteoporosis (Acute) Paroxysmal atrial fibrillation (Chronic) Pleural effusion on left (Resolved) Pneumonia (Resolved) Premature ventricular contractions (Acute) Syncope (Resolved) Surgical History Hx of cataract surgery Family History Mother Hypertension Kidney disease Social History Preferred Language: Divehi Communication Ability: Impaired Informaticist Required: No Beliefs That Will Affect Care: None Current Living Situation: Spouse Current Living Situation Comment: House current occupational status: retired Other Information That Helps Us Care for You: No Feels Safe at Home: Yes Smoking Status: Former smoker Hx Alcohol Use: No Hx Substance Use: No Review of Systems Review of Systems: All systems reviewed & are unremarkable except as noted in HPI & below Physical Exam Constitutional: WD/WN, vitals as above + ill appearing and + cachectic Eyes: PERRL, conjunctivae normal, anicteric sclerae ENMT: external ear and nose normal, oropharynx normal Neck: trachea midline, no thyromegaly Respiratory: normal respiratory effort, lungs clear to auscultation Cardiovascular: Rate/Rhythm: + irregularly irregular Heart Sounds: normal S1 and normal S2 Vessels: dorsalis pedis pulses present Gastrointestinal (Abdomen): normal bowel sounds, soft, nontender, no hepatosplenomegaly Musculoskeletal: no cyanosis or clubbing, extremities motor strength 5/5 Skin: no rashes, warm and dry Neurologic: PERRL, EOMI, accommodation nl, no face palsy, no dysarthria Psychiatric: Insight: + limited insight Patient exhibits severe mixed dementia Lymphatic: no cervical or axillary lymphadenopathy Results & Data Vital Signs (Past 12 Hours) Vital Signs Temp Pulse Pulse Resp BP BP Pulse Ox 04/27/19 23:36 51 L 04/27/19 23:07 36.8 C 101 H 16 135/58 L 97 04/27/19 19:47 36.4 C L 42 L 20 161/72 H 99 04/27/19 19:01 54 L 18 148/67 H 04/27/19 19:00 55 L 25 H 04/27/19 18:32 63 20 04/27/19 18:31 58 L 17 140/64 04/27/19 18:30 62 20 04/27/19 18:01 65 23 183/83 H 04/27/19 18:00 75 15 04/27/19 17:33 64 22 04/27/19 17:32 66 26 H 165/62 H 04/27/19 17:00 60 15 04/27/19 16:30 53 L 19 131/46 L 04/27/19 16:01 59 L 20 94 04/27/19 16:00 58 L 24 135/53 L 93 04/27/19 15:30 41 L 31 H 148/71 H 73 L 04/27/19 15:04 9 L 04/27/19 14:31 65 28 H 120/84 04/27/19 14:30 49 L 22 04/27/19 14:25 64 24 120/84 99 04/27/19 14:09 66 33 H 153/83 H 04/27/19 14:02 58 L 25 H Code Status & VTE Plan Code Status Full code VTE Prophylaxis Plan VTE Prophylaxis will be ordered: Yes PG Care Time/CCT Total # of Minutes Spent Total Time Spent with Patient: Total time spent is greater than 50% in coordination of care (as documented) at patient's floor/unit and/or counseling patient:
[2019-04-28 06:20] LABS: Basophils # (auto) 0.01 K/uL (0-0.2); Basophils % (auto) 0.1 %; Eosinophils # (auto) 0.11 K/uL (0-0.5); Eosinophils % (auto) 1.4 %; Hematocrit (blood only) 36.6 % (37-47); Hemoglobin 11.9 g/dL (12.0-16.0); Immature Granulocytes # (auto) 0.03 K/uL (0.00-0.02); Immature Granulocytes % (auto) 0.4 %; Lymphocytes % (auto) 32.9 %; Mean Corpuscular Hemoglobin 30.8 pg (25-34); Mean Corpuscular Hgb Conc 32.5 g/dL (32-36); Mean Corpuscular Volume 94.8 fL (80-100); Mean Platelet Volume 9.6 fL (7.4-10.4); Monocytes # (auto) 0.57 K/uL (0.11-0.59); Monocytes % (auto) 7.5 %; Neutrophils # (auto) 4.37 K/uL (1.4-6.5); Neutrophils % (auto) 57.7 %; Platelet Count 318 K/uL (130-400); RDW Coefficient of Variation 15.2 % (11.5-14.5); RDW Standard Deviation 52.2 fL (36.4-46.3); Red Blood Count 3.86 M/uL (4.2-5.4); White Blood Count 7.59 K/uL (4.8-10.8)
[2019-04-28 06:55] LABS: Chol HDL Ratio 7; Cholesterol 188 mg/dl (0-200); HDL Cholesterol 28 mg/dl; LDL Cholesterol Calculated 137 mg/dl; Triglycerides 116 mg/dl (0-150); VLDL Cholesterol 23 mg/dl
[2019-04-28 08:11] LABS: Estimated Average Glucose 111 mg/dl; Hemoglobin A1C 5.5 % (4.5-5.6)
[2019-04-28] MEDS ORDERED: AMLODIPINE BESYLATE 5 MG TAB PO ONE (08:15)
[2019-04-28] MEDS: MEMANTINE HCL 5 MG TAB PO SCH ×2 (08:33→21:30)
[2019-04-28] MEDS: APIXABAN 2.5 MG TAB PO SCH ×2 (08:34→21:30)
[2019-04-28] MEDS: FLUTICASONE PROPIONATE NA SPR 16 GM BTL SCH (08:34)
[2019-04-28] MEDS: MEGESTROL ACETATE SUSP 400 MG/10 ML UDC PO SCH (08:34)
[2019-04-28] MEDS: FLUTICASONE HFA 220 MCG INHALER INH SCH (08:35)
[2019-04-28] MEDS ORDERED: METOPROLOL SUCC 50MG EXT REL TAB PO SCH (09:00)
--- NOTE | 2019-04-28 15:35 | Hospitalist Progress Note ---
Date of Service April 28, 2019 Assessment & Plan (1) Elevated troponin: minimally elevated at 0.04 and 0.06 no chest pain, no EKG changes no signs of ACS, no further work up planned (2) Dehydration: Continue gentle IV fluid hydration electrolytes stable reported that she was not making much urine, bladder scan with only 220 straight cath once, will monitor closely (3) Near syncope: could be due to bradycardia holding Toprol, will monitor her HR will get PT/OT while here CT of the head no acute findings (4) Atrial fibrillation: Continue apixaban 2.5 mg p.o. twice daily (5) Dementia: Continue memantine 5 mg p.o. twice daily Follow-up with Dr. Greenfield neurology (6) Hypertension: Stable , continue digoxin 125 MCG's p.o. every morning, continue indapamide 1.25 mg p.o. Thursday/Thursday/Thursday. HOLD metoprolol due to bradycardia (7) Intrinsic asthma: Stable, continue fluticasone propionate 2 puffs inhalation every morning, and fluticasone propionate 2 sprays intranasal every morning. no wheezing or distress on exam (8) Failure to thrive: Continue Fernando Strohl 400 mg p.o. every morning us customs and border officer to see she has protein calorie malnutrition, reports 15-20 lb weight loss in past year Subjective patient doing fine today, no major issues she cannot provide history, here at the bedside from what I can gather she was just getting weak and falling intermittently she was not losing consciousness she never had an injury on the monitor her HR is in the 40-50's, Toprol held this morning discussed with Dr Mckinnon, her PCP, he has been trying to limit her rate control meds for a while got her off Diltiazem and was titrating down on Toprol will ask PT/OT to see her Review of Systems Review of Systems: Unobtainable due to cognitive status (dementia) Physical Exam Constitutional: WD/WN, vitals as above + thin and + underweight Eyes: PERRL, conjunctivae normal, anicteric sclerae ENMT: external ear and nose normal, oropharynx normal Neck: trachea midline, no thyromegaly Respiratory: normal respiratory effort, lungs clear to auscultation Cardiovascular: Rate/Rhythm: + bradycardic and + irregularly irregular Heart Sounds: normal S1 and normal S2; no murmur Extremities: normal capillary refill; no edema Gastrointestinal (Abdomen): normal bowel sounds, soft, nontender, no hepatosplenomegaly Musculoskeletal: no cyanosis or clubbing, extremities motor strength 5/5 Skin: no rashes, warm and dry Neurologic: patellar DTR's 2+ bilat, sensation intact and PERRL, EOMI, accommodation nl, no face palsy, no dysarthria Psychiatric: Orientation: alert and oriented to person; + not oriented to place and + not oriented to time Lymphatic: no cervical or axillary lymphadenopathy Results & Data Vital Signs (Past 12 Hours) Vital Signs Temp Pulse Resp BP Pulse Ox 04/28/19 11:21 36.7 C 47 L 16 141/54 H 96 04/28/19 07:25 36.4 C L 86 16 174/70 H 92 04/28/19 04:00 36.4 C L 62 18 145/64 H 100 Laboratory Results Laboratory Results - last 24 hr 04/27/19 04/28/19 04/28/19 19:58 01:18 05:42 WBC 7.59 RBC 3.86 L Hgb 11.9 L Hct 36.6 L MCV 94.8 MCH 30.8 MCHC 32.5 RDW Std Deviation 52.2 H RDW Coeff of Zack 15.2 H Plt Count 318 MPV 9.6 Immature Gran % (Auto) 0.4 Neut % (Auto) 57.7 Lymph % (Auto) 32.9 [place] % (Auto) 7.5 Eos % (Auto) 1.4 Baso % (Auto) 0.1 Immature Gran # (Auto) 0.03 H Neut # (Auto) 4.37 Lymph # (Auto) 2.50 [place] # (Auto) 0.57 Eos # (Auto) 0.11 Baso # (Auto) 0.01 Estimat Average Glucose Hemoglobin A1c Troponin I 0.043 0.063 H* Triglycerides Cholesterol LDL Cholesterol, Calc VLDL Cholesterol, Calc HDL Cholesterol Cholesterol/HDL Ratio 04/28/19 04/28/19 05:42 05:42 WBC RBC Hgb Hct MCV MCH MCHC RDW Std Deviation RDW Coeff of Zack Plt Count MPV Immature Gran % (Auto) Neut % (Auto) Lymph % (Auto) [place] % (Auto) Eos % (Auto) Baso % (Auto) Immature Gran # (Auto) Neut # (Auto) Lymph # (Auto) [place] # (Auto) Eos # (Auto) Baso # (Auto) Estimat Average Glucose 111 Hemoglobin A1c 5.5 Troponin I Triglycerides 116 Cholesterol 188 LDL Cholesterol, Calc 137 VLDL Cholesterol, Calc 23 HDL Cholesterol 28 Cholesterol/HDL Ratio 7 Medications Administered Current Inpatient Medications Acetaminophen (Tylenol) 650 mg PO Q4H PRN PRN Reason: Pain or Fever Stop: 05/27/19 19:46 Al Hydrox/Mg Hydrox/Simethicone (Maalox) 15 ml PO Q4H PRN PRN Reason: Dyspepsia Stop: 05/27/19 19:46 Apixaban (Eliquis) 2.5 mg PO BID [facility] Stop: 05/27/19 20:59 Last Admin: 04/28/19 08:34 Dose: 2.5 mg Documented by: Digoxin (Lanoxin) 0.125 mg PO Q24H [facility] Stop: 05/28/19 15:59 Fluticasone Propionate (Flovent Hfa 220mcg) [facility] puffs [facility] Stop: 05/28/19 08:59 Last Admin: 04/28/19 08:35 Dose: 2 puffs Documented by: Fluticasone Propionate (Flonase) 2 sprays NA QAM [facility] Stop: 05/28/19 08:59 Last Admin: 04/28/19 08:34 Dose: 2 sprays Documented by: Ceftriaxone Sodium 2,000 mg/ (Dextrose) 70 mls @ 140 mls/hr IV Q24H [facility] Stop: 05/02/19 19:59 Last Infusion: 04/27/19 21:30 Dose: Infused Documented by: Indapamide (Lozol) 1.25 mg PO MoWeFr@0900 [facility] Stop: 05/29/19 08:59 Magnesium Hydroxide (Milk Of Magnesia) 30 ml PO Q12H PRN PRN Reason: Constipation Stop: 05/27/19 19:46 Megestrol Acetate (Megace) 400 mg PO QAM [facility] Stop: 05/28/19 08:59 Last Admin: 04/28/19 08:34 Dose: 400 mg Documented by: Memantine (Namenda) 5 mg PO BID [facility] Stop: 05/27/19 20:59 Last Admin: 04/28/19 08:33 Dose: 5 mg Documented by: Metoprolol Succinate (Toprol Xl) 50 mg PO QAM [facility] Stop: 05/28/19 08:59 Ondansetron HCl (Zofran) 4 mg IV Q6H PRN PRN Reason: Nausea Stop: 05/27/19 19:46 Polyethylene Glycol (Miralax Powder Packet) 17 gm PO DAILY PRN PRN Reason: Constipation Stop: 05/27/19 19:46 PG Care Time/CCT Total # of Minutes Spent Total Time Spent with Patient: Total time spent is greater than 50% in coordination of care (as documented) at patient's floor/unit and/or counseling patient:
[2019-04-28] MEDS: DIGOXIN 0.125 MG TAB PO SCH (16:16)
[2019-04-28] MEDS: cefTRIAXone SODIUM 2,000 MG in DEXTROSE 5% 50 ML IV SCH (21:00)
--- NOTE | 2019-04-28 23:20 | Electrocardiogram Report ---
Test Reason : Blood Pressure : / mmHG Vent. Rate : 050 BPM Atrial Rate : 000 BPM P-R Int : 000 ms QRS Dur : 086 ms QT Int : 386 ms P-R-T Axes : 000 080 -76 degrees QTc Int : 351 ms Atrial fibrillation with slow ventricular response Left ventricular hypertrophy with repolarization abnormality Anteroseptal infarct (cited on or before 14-OCT-2018) Abnormal ECG When compared with ECG of 27-APR-2019 14:03, No significant change was found Confirmed by Fernando Baker ([id number]) on 04/28/2019 11:21:05 PM Referred By: REFERRED SELF Confirmed By:Fernando Baker
[2019-04-29 06:41] LABS: Basophils # (auto) 0.01 K/uL (0-0.2); Basophils % (auto) 0.1 %; Eosinophils # (auto) 0.11 K/uL (0-0.5); Eosinophils % (auto) 1.3 %; Hematocrit (blood only) 35.6 % (37-47); Hemoglobin 11.8 g/dL (12.0-16.0); Immature Granulocytes # (auto) 0.03 K/uL (0.00-0.02); Immature Granulocytes % (auto) 0.3 %; Lymphocytes # (auto) 2.16 K/uL (1.2-3.4); Lymphocytes % (auto) 24.7 %; Mean Corpuscular Hemoglobin 31.1 pg (25-34); Mean Corpuscular Hgb Conc 33.1 g/dL (32-36); Mean Corpuscular Volume 93.7 fL (80-100); Mean Platelet Volume 9.2 fL (7.4-10.4); Monocytes # (auto) 0.73 K/uL (0.11-0.59); Monocytes % (auto) 8.3 %; Neutrophils # (auto) 5.71 K/uL (1.4-6.5); Neutrophils % (auto) 65.3 %; Platelet Count 324 K/uL (130-400); RDW Standard Deviation 51.4 fL (36.4-46.3); White Blood Count 8.75 K/uL (4.8-10.8)
[2019-04-29] MEDS: FLUTICASONE PROPIONATE NA SPR 16 GM BTL SCH (08:41)
[2019-04-29] MEDS: MEGESTROL ACETATE SUSP 400 MG/10 ML UDC PO SCH (08:41)
[2019-04-29] MEDS: MEMANTINE HCL 5 MG TAB PO SCH ×2 (08:42→20:01)
[2019-04-29] MEDS: FLUTICASONE HFA 220 MCG INHALER INH SCH (08:42)
[2019-04-29] MEDS: APIXABAN 2.5 MG TAB PO SCH ×2 (08:42→20:01)
[2019-04-29] MEDS ORDERED: INDAPAMIDE 1.25 MG TAB PO SCH (09:00)
--- NOTE | 2019-04-29 13:42 | Hospitalist Progress Note ---
Date of Service April 29, 2019 Assessment & Plan (1) Bradycardia: HR in the 50's consistently, dropped into the 30's overnight the night she was admitted metoprolol has been held since admission, no doses on 04/28 or 04/29 rates trending a little higher now, into 90's at times but no RVR question is whether this will be tachy thu syndrome if she develops tachycardia and needs metoprolol then she will likely need pacemaker please consult cardiology if she develops tachycardia, Dr. Baker on this weekend and he is aware of her per Dr. Peters (2) Atrial fibrillation: Continue apixaban 2.5 mg p.o. twice daily holding metoprolol since admission, no doses for nearly 48 hours HR is trending a little higher now certainly if she has RVR then would need to resume metoprolol consult cardiology if this happens (3) Near syncope: most likely due to bradycardia holding Toprol, will monitor her HR (50-90's) will get PT/OT while here CT of the head no acute findings would go home with her if no events this weekend has care givers Mon-Thu in the morning (4) Elevated troponin: minimally elevated at 0.04 and 0.06 no chest pain, no EKG changes no signs of ACS, no further work up planned this is not the cause of her falling at home (5) Dehydration: stop IV fluids electrolytes stable reported that she was not making much urine, bladder scan with only 220 straight cath once, will monitor closely (6) Dementia: Continue memantine 5 mg p.o. twice daily Follow-up with Dr. Greenfield neurology (7) Hypertension: Stable , continue digoxin 125 MCG's p.o. every morning, continue indapamide 1.25 mg p.o. Thursday/Thursday/Thursday. HOLD metoprolol due to bradycardia (8) Intrinsic asthma: Stable, continue fluticasone propionate 2 puffs inhalation every morning, and fluticasone propionate 2 sprays intranasal every morning. no wheezing or distress on exam (9) Failure to thrive: Continue Fernando Strohl 400 mg p.o. every morning apple turner to see she has protein calorie malnutrition, reports 15-20 lb weight loss in past year also, has intermittent issue with swallowing, will consult speech therapy Subjective patient more alert today, conversive she denies pain, dyspnea, cough, chest pain, fever/chills however, she is not the greatest historian, unaware of time, where she is at the bedside, he says that she seems to be at her baseline in terms of memory and function discussed plan with Dr. Peters, her mica builder he is not formally consulted but has known patient for many years due to atrial fibrillation reviewed the tele monitor, HR in 50-90 range, no RVR noted since admission Dr. Peters recommends watching patient over the weekend for any RVR ideally her HR will remain stable, could just go home off of metoprolol patient's agrees with plan PT/OT consulted to make sure she is strong enough to go home concerned because he notices that she will not swallow food sometimes she will chew food for a long time, longer than would be expected, and then just take it out of her mouth told him we could have speech therapy evaluate her Review of Systems Review of Systems: Unobtainable due to cognitive status Physical Exam Constitutional: WD/WN, vitals as above + thin and + underweight Eyes: PERRL, conjunctivae normal, anicteric sclerae ENMT: external ear and nose normal, oropharynx normal Neck: trachea midline, no thyromegaly Respiratory: normal respiratory effort, lungs clear to auscultation Cardiovascular: Rate/Rhythm: + bradycardic and + irregularly irregular Heart Sounds: normal S1 and normal S2; no murmur Extremities: normal capillary refill; no edema Gastrointestinal (Abdomen): normal bowel sounds, soft, nontender, no hepatosplenomegaly Musculoskeletal: no cyanosis or clubbing, extremities motor strength 5/5 Skin: no rashes, warm and dry Neurologic: patellar DTR's 2+ bilat, sensation intact and PERRL, EOMI, accommodation nl, no face palsy, no dysarthria Psychiatric: Orientation: alert and oriented to person; + not oriented to place and + not oriented to time Lymphatic: no cervical or axillary lymphadenopathy Results & Data Vital Signs (Past 12 Hours) Vital Signs Temp Pulse Pulse Resp BP Pulse Ox 04/29/19 12:25 87 18 118/77 96 04/29/19 07:20 36.6 C 53 L 20 150/69 H 99 04/29/19 07:00 62 04/29/19 06:27 59 L 165/84 H 04/29/19 04:00 37.1 C 99 H 20 177/54 H 94 Laboratory Results Laboratory Results - last 24 hr 04/29/19 04/29/19 06:25 06:25 WBC 8.75 RBC 3.80 L Hgb 11.8 L Hct 35.6 L MCV 93.7 MCH 31.1 MCHC 33.1 RDW Std Deviation 51.4 H RDW Coeff of Zack 15.0 H Plt Count 324 MPV 9.2 Immature Gran % (Auto) 0.3 Neut % (Auto) 65.3 Lymph % (Auto) 24.7 [place] % (Auto) 8.3 Eos % (Auto) 1.3 Baso % (Auto) 0.1 Immature Gran # (Auto) 0.03 H Neut # (Auto) 5.71 Lymph # (Auto) 2.16 [place] # (Auto) 0.73 H Eos # (Auto) 0.11 Baso # (Auto) 0.01 Troponin I 0.061 H* Medications Administered Current Inpatient Medications Acetaminophen (Tylenol) 650 mg PO Q4H PRN PRN Reason: Pain or Fever Stop: 05/27/19 19:46 Al Hydrox/Mg Hydrox/Simethicone (Maalox) 15 ml PO Q4H PRN PRN Reason: Dyspepsia Stop: 05/27/19 19:46 Apixaban (Eliquis) 2.5 mg PO BID [facility] Stop: 05/27/19 20:59 Last Admin: 04/29/19 20:01 Dose: 2.5 mg Documented by: Digoxin (Lanoxin) 0.125 mg PO Q24H [facility] Stop: 05/28/19 15:59 Last Admin: 04/29/19 17:32 Dose: Not Given Documented by: Fluticasone Propionate (Flovent Hfa 220mcg) [facility] Stop: 05/28/19 08:59 Last Admin: 04/29/19 08:42 Dose: 2 puffs Documented by: Fluticasone Propionate (Flonase) 2 sprays NA QAM [facility] Stop: 05/28/19 08:59 Last Admin: 04/29/19 08:41 Dose: 2 sprays Documented by: Ceftriaxone Sodium 2,000 mg/ (Dextrose) 70 mls @ 140 mls/hr IV Q24H [facility] Stop: 05/02/19 19:59 Last Infusion: 04/29/19 20:06 Dose: Infused Documented by: Indapamide (Lozol) 1.25 mg PO MoWeFr@0900 [facility] Stop: 05/29/19 08:59 Last Admin: 04/29/19 08:42 Dose: 1.25 mg Documented by: Magnesium Hydroxide (Milk Of Magnesia) 30 ml PO Q12H PRN PRN Reason: Constipation Stop: 05/27/19 19:46 Megestrol Acetate (Megace) 400 mg PO QAM [facility] Stop: 05/28/19 08:59 Last Admin: 04/29/19 08:41 Dose: 400 mg Documented by: Memantine (Namenda) 5 mg PO BID [facility] Stop: 05/27/19 20:59 Last Admin: 04/29/19 20:01 Dose: 5 mg Documented by: Metoprolol Succinate (Toprol Xl) 50 mg PO QAM [facility] Stop: 05/28/19 08:59 Ondansetron HCl (Zofran) 4 mg IV Q6H PRN PRN Reason: Nausea Stop: 05/27/19 19:46 Polyethylene Glycol (Miralax Powder Packet) 17 gm PO DAILY PRN PRN Reason: Constipation Stop: 05/27/19 19:46 PG Care Time/CCT Total # of Minutes Spent Total Time Spent: 40 Total Time Spent with Patient: Total time spent is greater than 50% in coordination of care (as documented) at patient's floor/unit and/or counseling patient:
[2019-04-29] MEDS: DIGOXIN 0.125 MG TAB PO SCH (17:32)
[2019-04-29] MEDS: cefTRIAXone SODIUM 2,000 MG in DEXTROSE 5% 50 ML IV SCH (19:31)
[2019-04-30 06:46] LABS: Basophils # (auto) 0.01 K/uL (0-0.2); Basophils % (auto) 0.1 %; Eosinophils # (auto) 0.11 K/uL (0-0.5); Eosinophils % (auto) 1.3 %; Hematocrit (blood only) 33.8 % (37-47); Hemoglobin 11.3 g/dL (12.0-16.0); Immature Granulocytes # (auto) 0.04 K/uL (0.00-0.02); Immature Granulocytes % (auto) 0.5 %; Lymphocytes % (auto) 31.8 %; Mean Corpuscular Hgb Conc 33.4 g/dL (32-36); Mean Corpuscular Volume 92.9 fL (80-100); Mean Platelet Volume 9.1 fL (7.4-10.4); Monocytes # (auto) 0.74 K/uL (0.11-0.59); Monocytes % (auto) 9.1 %; Neutrophils # (auto) 4.67 K/uL (1.4-6.5); Neutrophils % (auto) 57.2 %; Platelet Count 319 K/uL (130-400); RDW Standard Deviation 51.5 fL (36.4-46.3); Red Blood Count 3.64 M/uL (4.2-5.4); White Blood Count 8.17 K/uL (4.8-10.8)
[2019-04-30] MEDS: MEGESTROL ACETATE SUSP 400 MG/10 ML UDC PO SCH (08:13)
[2019-04-30] MEDS: MEMANTINE HCL 5 MG TAB PO SCH (08:13)
[2019-04-30] MEDS: FLUTICASONE HFA 220 MCG INHALER INH SCH (08:13)
[2019-04-30] MEDS: APIXABAN 2.5 MG TAB PO SCH (08:13)
[2019-04-30] MEDS: FLUTICASONE PROPIONATE NA SPR 16 GM BTL SCH (08:14)
--- NOTE | 2019-04-30 09:48 | Discharge Summary ---
Date of Service April 30, 2019 Admission HPI Per Admitting Provider Patient is a 89 years old female with past medical history of paroxysmal atrial fibrillation on Eliquis, hypertension, glaucoma of both eyes, dementia who presents to the emergency room complaining of persistent weakness starting 1 day ago. The patient's reports that patient is very weak and confused. He states that the patient has experienced these symptoms before she has dementia but that her confusion is worse than normal. He explains that patient takes a lot of medications and sometimes she makes them up. Patient is followed by nephrology Dr. Mckinnon. For the past 24 hours patient was not able to urinate. Patient is poor historian and it is difficult to obtain ROS with her. The major history was obtained from her . EKG reviewed and shows atrial fibrillation has replaced atrial flutter. Ventricular rate is decreased by [address] no longer elevated in inferior leads. ST no longer depressed in the lateral leads. Patient sees Dr. 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 Donepezil was recently discontinued because patient could not tolerate it. Dr. Greenfield continued with Namenda since patient tolerates that very well. Patient supposed to follow-up with him in 8 months. Labs are reviewed: WBC 7.27, hemoglobin 12.9, hematocrit 39.3, platelets 354, sodium 143, potassium 4, chloride 109, anion gap 4, BUN 20. Decision was made to admit patient to telemetry for observation for dehydration, acute on chronic confusion, and elevated troponin. Admission Exam Per Admitting Provider Constitutional: WD/WN, vitals as above + ill appearing and + cachectic Eyes: PERRL, conjunctivae normal, anicteric sclerae ENMT: external ear and nose normal, oropharynx normal Neck: trachea midline, no thyromegaly Respiratory: normal respiratory effort, lungs clear to auscultation Cardiovascular: Rate/Rhythm: + irregularly irregular Heart Sounds: normal S 1 and normal S2 Vessels: dorsalis pedis pulses present Gastrointestinal (Abdomen): normal bowel sounds, soft, nontender, no hepatosplenomegaly Musculoskeletal: no cyanosis or clubbing, extremities motor strength 5/5 Skin: no rashes, warm and dry Neurologic: PERRL, EOMI, accommodation nl, no face palsy, no dysarthria Psychiatric: Insight: + limited insight Patient exhibits severe mixed dementia Lymphatic: no cervical or axillary lymphadenopathy Principal Diagnosis 1. Weakness, likely multifactorial 2. Advancing dementia 3. Atrial fibrillation with bradycardia 4. Ambulatory dysfunction 5. Hypertension by history Discharge Exam Gen: Awake, oriented to name only. No acute distress. Cachectic HEENT: neck supple, no JVD. MMM. Heart: Irregularly irregular, bradycardic Lungs: clear to auscultation in all turner Abd: soft, nontender, nondistended. Normal BS Neuro: awake, alert. Nonfocal Psych: appropriate mood and affect Ext: No clubbing, cyanosis, edema Discharge Data Allergies Allergy/AdvReac Type Severity Reaction Status Date / Time Sulfa (Sulfonamide Allergy Mild RASH Verified 04/27/19 14:10 Antibiotics) INDIGO Inhibitors Allergy Unknown Rash Verified 04/27/19 14:10 amoxicillin [From Augmentin] Allergy Unknown Diarrhea Verified 04/27/19 14:10 clavulanic acid Allergy Unknown Diarrhea Verified 04/27/19 14:10 [From Augmentin] Consultations 04/27/19 17:02 ED Decision to Admit Stat Ordered Studies 04/27/19 13:57 CT head/brain wo con Stat CT head/brain wo con CT DOSE: 1074.96 mGy.cm HISTORY: Mental status change weakness, confusion TECHNIQUE: Multiaxial CT images of the head were performed without the use of intravenous contrast. A dose lowering technique was utilized adhering to the principles of ALARA. Comparison: 12/04/2018 Findings: Moderate mucosal thickening of the sphenoid and ethmoid sinuses. Mastoid air cells show minimal sclerosis. The brain specifically shows evidence for generalized atrophy. 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 There are no new or interval findings. There is no midline shift. There is mild compensatory prominence of the ventricular system. Impression: Chronic and pre-existing change. No acute process. Mucosal thickening of the sphenoid and ethmoid sinuses. Hospital Course (1) Bradycardia: HR in the 50's consistently, dropped into the 30's overnight the night she was admitted metoprolol has been held since admission, no doses on 04/28 or 04/29 rates trending a little higher now, into 90's at times but no RVR question is whether this will be tachy thu syndrome if she develops tachycardia and needs metoprolol then she will likely need pacemaker Plan to discharge completely off metoprolol. He can continue other medications for now including digoxin. Patient will need close follow-up with cardiology, if she continues to have tachycardia/bradycardia issues, may need pacemaker in the near future. (2) Atrial fibrillation: Continue apixaban 2.5 mg p.o. twice daily holding metoprolol since admission, no doses for nearly 48 hours HR is trending a little higher now Beta-ming held as noted above. Continue digoxin along with anticoagulation. (3) Near syncope: most likely due to bradycardia holding Toprol, will monitor her HR (50-90's) will get PT/OT while here CT of the head no acute findings would go home with her if no events this weekend has care givers Mon-Thu in the morning (4) Elevated troponin: minimally elevated at 0.04 and 0.06 no chest pain, no EKG changes no signs of ACS, no further work up planned this is not the cause of her falling at home (5) Dehydration: stop IV fluids. Last creatinine checked 04/27 and was 0.9 with a BUN of 20. Patient does not look dehydrated by exam and is taking p.o.'s ad darren. (6) Dementia: Continue memantine 5 mg p.o. twice daily Follow-up with Dr. Greenfield neurology (7) Hypertension: Stable , continue digoxin 125 MCG's p.o. every morning, continue indapamide 1.25 mg p.o. Thursday/Thursday/Thursday. HOLD metoprolol due to bradycardia (8) Intrinsic asthma: Stable, continue fluticasone propionate 2 puffs inhalation every morning, and fluticasone propionate 2 sprays intranasal every morning. no wheezing or distress on exam (9) Failure to thrive: Continue Fernando Strohl 400 mg p.o. every morning foreign language teacher to see she has protein calorie malnutrition, reports 15-20 lb weight loss in past year also, has intermittent issue with swallowing, will consult speech therapy Total Time Total Time Spent Total Time Spent (In Minutes): Discharge preparation in excess of 30 minutes. Discharge Plan Discharge Items Patient Disposition: Home - Home Health Services Reason For Visit: AMS, ELEVATED TROPONIN, UTI Discharge Diagnosis: 1. Acute weakness, likely multifactorial 2. Elevated troponin of unclear significance 3. Atrial fibrillation with bradycardia 4. Advanced senile dementia 5. Ambulatory dysfunction and deconditioning Activity: Per Instructions section Lifting: None Exercise/Sports: None Non-emergency contact: Primary Care Provider Call non-emergency contact if: you have any medication questions, your symptoms worsen and you have a fever Follow-up/Referrals: Pritesh Mckinnon MD [Primary Care Provider] - René Greenfield MD [Physician] - Diet: Heart Healthy Addtl Attending Provider Instructions: Physical therapy and occupational therapy to arranged at home Stand-Alone Forms: [facility] [employer], Smoking Cessation Medications and DC Order Prescriptions: Continued Eliquis 2.5 mg Tablet 2.5 mg PO AMPM RF: 0 indapamide 1.25 mg tablet 1.25 mg PO MOWEFR RF: 0 megestrol 400 mg/10 mL (40 mg/mL) suspension 400 mg PO QAM RF: 0 Flovent HFA 220 mcg/actuation HFA aerosol inhaler 2 puffs inhalation QAM RF: 0 digoxin 125 mcg (0.125 mg) tablet 125 mcg PO QAM RF: 0 fluticasone propionate [Flonase Allergy Relief] 50 mcg/actuation spray,suspension 2 sprays intranasal QAM RF: 0 memantine 5 mg tablet 5 mg PO AMPM RF: 0 Discontinued metoprolol succinate 50 mg tablet extended release 24 hr 50 mg PO QAM RF: 0 Discharge Orders: Discharge Order (Routine); Ordered 04/30/19 Ordered By: Chris Harris Admission Data Admit Date/Time: 04/29/19 13:41 Attending Provider: Chris Harris Admit Provider: Kelvin Edgar Primary Care Provider: Pritesh Mckinnon Other Providers: Kelvin Edgar ; Corbin Manzo
== END 2019-04-30 11:45 | disposition home health service (06) | DRG 309 ==
LOC: ED 13:02 → 2N 13:02 → SUATTDRO 18:35 → 2N 19:20 → SUATTDRO 04-29 13:41

== ENCOUNTER 2019-05-05 14:29 | Inpatient (IN) ==
[2019-05-05] MEDS ORDERED: SODIUM CHLORIDE 0.9% 500 ML IV SCH (15:45)
--- NOTE | 2019-05-05 16:24 | XRay Report ---
XR chest 1V portable HISTORY: 89 years-old Female weakness acute weakness COMPARISON: Chest radiograph 04/27/2019 TECHNIQUE: Portable AP view of the chest FINDINGS: Cardiac silhouette is enlarged, unchanged. Calcified plaque of the thoracic aortic arch. The patient is rotated. Lungs are hyperinflated. No pneumothorax. Chronic blunting of the costophrenic angles tameka cifications at the lung apices. No large pleural effusion, overt pulmonary edema or new focal airspac e consolidation. 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 Convex left scoliosis of th e upper thoracic spine. IMPRESSION: Chronic findings as above without acute process. ACT 112: Negative or not required by law. The above report was generated using voice recognition software. It may contain grammatical, syntax o r spelling errors. Electronically signed by: Ty Mills M.D. 05/05/2019 4:23 PM
[2019-05-05 16:51] LABS: Basophils # (auto) 0.01 K/uL (0-0.2); Basophils % (auto) 0.1 %; Eosinophils # (auto) 0.05 K/uL (0-0.5); Eosinophils % (auto) 0.5 %; Hematocrit (blood only) 37.9 % (37-47); Hemoglobin 12.6 g/dL (12.0-16.0); Immature Granulocytes # (auto) 0.08 K/uL (0.00-0.02); Immature Granulocytes % (auto) 0.8 %; Lymphocytes # (auto) 2.29 K/uL (1.2-3.4); Mean Corpuscular Hgb Conc 33.2 g/dL (32-36); Mean Corpuscular Volume 93.3 fL (80-100); Monocytes % (auto) 7.7 %; Neutrophils % (auto) 68.9 %; Platelet Count 364 K/uL (130-400); RDW Coefficient of Variation 15.4 % (11.5-14.5); RDW Standard Deviation 52.6 fL (36.4-46.3); Red Blood Count 4.06 M/uL (4.2-5.4); White Blood Count 10.43 K/uL (4.8-10.8)
[2019-05-05 17:12] LABS: Alanine Aminotransferase 11 U/L (12-78); Albumin Level 3.1 gm/dl (3.4-5.0); Aspartate Aminotransferase 18 U/L (15-37); BUN Creatinine Ratio 22.2 (10-20); Blood Urea Nitrogen 18 mg/dl (7-18); Calcium 9.1 mg/dl (8.5-10.1); Carbon Dioxide 28 mmol/L (21-32); Chloride 109 mmol/L (98-107); Glucose 86 mg/dl (70-99); Magnesium 2.1 mg/dl (1.8-2.4); Potassium 3.7 mmol/L (3.5-5.1); Sodium 141 mmol/L (136-145)
[2019-05-05 17:27] LABS: Anisocytosis Present
[2019-05-05 17:28] LABS: Albumin Globulin Ratio 0.9 (0.9-2); Alkaline Phosphatase 46 U/L (45-117); Bilirubin,Total 0.6 mg/dl (0.2-1); Globulin 3.3 gm/dl (2.5-4.0); Total Protein 6.4 gm/dl (6.4-8.2); Troponin I 0.408 ng/ml (0-0.045)
[2019-05-05 17:57] LABS: Appearance Urine Clear (Clear); Bilirubin Urine Negative (Negative); Blood Urine Negative (Negative); Color Urine Dark Yellow; Glucose Urine UA Negative (Negative); Ketones Urine Negative (Negative); Leukocyte Esterase Urine Negative (Negative); Nitrite Urine Negative (Negative); Protein Urine Negative (Negative); Specific Gravity Urine 1.023 (1.000-1.030); Urobilinogen Urine Negative (Negative)
--- NOTE | 2019-05-05 18:56 | History & Physical Report ---
Date of Service May 05, 2019 Assessment & Plan (1) Elevated troponin: Was 0.061 on recent admission serials pending EKG WNL CXR neg for acute Trop could be related to persistent tachy in a frail pt (2) Tachycardia: concern on last admission (d/c 04/30) for bradycardia and possible tachy- thu syndrome Metoprolol d/c'd due to bradycardia and concerns this was causing weakness Follows with Dr. Baker Tele monitor CBC, PRP, Mg WNL TSH WNL UA neg (3) Weakness: PT/OT pending Likely multifactorial in the setting of recent weight loss and poor PT intake HHN M-F currently, may need more support denies falls (4) Failure to thrive: Improved appetite with megestrol Monitor (5) Atrial fibrillation: continue home meds, eliquis (6) Dementia: continue home meds Sitter when not present to reduce fall risk as well as agitation related to confusion (7) Hypertension: continue home meds (8) DVT prophylaxis: Eliqukade SCDs History of Present Illness Primary Care Provider: Pritesh Mckinnon MD 89 y/o F who was brought to the ED by her for c/o weakness. states that she was admitted to [facility] recently for the same issue. Her medications were changed at that time. Her weakness has continued, no better or worse. She has not fallen. She was started on something for appetite due to issues with decreased appetite and weight loss and he states that her appetite has been much improved the last week. He states she has had no c/o chest pain or other pain. Pt denies fever, SOB, chest pain, abd pain, n/v/c/d, LE pain or swelling. There is HHN on M-F. Allergies Allergy/AdvReac Type Severity Reaction Status Date / Time Sulfa (Sulfonamide Allergy Mild RASH Verified 05/05/19 16:26 Antibiotics) INDIGO Inhibitors Allergy Unknown Rash Verified 05/05/19 16:26 amoxicillin [From Augmentin] Allergy Unknown Diarrhea Verified 05/05/19 16:26 clavulanic acid Allergy Unknown Diarrhea Verified 05/05/19 16:26 [From Augmentin] Home Medications Home Medications Medication Instructions Recorded Confirmed Type Eliquis 2.5 mg PO AMPM 10/14/18 05/05/19 History indapamide 1.25 mg tablet 1.25 mg PO MOWEFR tab 11/26/18 05/05/19 History Flovent HFA 2 puffs INHALATION QAM 04/27/19 05/05/19 History digoxin 125 mcg PO QAM 04/27/19 05/05/19 History fluticasone propionate [Flonase 2 sprays INTRANASAL QAM 04/27/19 05/05/19 H istory Allergy Relief] megestrol 400 mg PO QAM 04/27/19 05/05/19 History memantine 5 mg PO AMPM 04/27/19 05/05/19 History Past Med/Surg History Medical History Abnormal electrocardiogram (Acute) Acquired deviated nasal septum (Acute) Chronic sinusitis (Acute) COPD (chronic obstructive pulmonary disease) (Chronic) COPD (chronic obstructive pulmonary disease) (Chronic) Dementia (Chronic) Glaucoma of both eyes (Acute) 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) Hyperglycemia (Acute) Hypertension (Chronic) Intrinsic asthma (Chronic) Laceration of arm (Inactive) Nasal polyps Orthostatic hypotension (Resolved) Osteoporosis (Acute) Paroxysmal atrial fibrillation (Chronic) Pleural effusion on left (Resolved) Pneumonia (Resolved) Premature ventricular contractions (Acute) Syncope (Resolved) Surgical History Hx of cataract surgery Family History Mother Hypertension Kidney disease Social History Preferred Language: Setswana Communication Ability: Impaired Research Animal Attendant Required: No Beliefs That Will Affect Care: None Current Living Situation: Spouse Current Living Situation Comment: House current occupational status: retired Feels Safe at Home: Yes Smoking Status: Former smoker Hx Alcohol Use: No Hx Substance Use: No Review of Systems Review of Systems: Pertinent positives and negatives reviewed in HPI--all others negative Physical Exam Constitutional: WD/WN, vitals as above Eyes: normal visual turner by confrontation and + anicteric sclerae Neck: normal visual inspection and trachea midline Respiratory: normal respiratory effort, lungs clear to auscultation Cardiovascular: Rate/Rhythm: regular rhythm and + tachycardic Gastrointestinal (Abdomen): Inspection/Auscultation: abdomen not distended Percussion/Palpation: abdomen soft; abdomen nontender Musculoskeletal: Head/Neck/Chest: normocephalic and head atraumatic negative for edema, peripheral pulses intact Skin: no rashes, warm and dry Neurologic: awake and + confused Speech / Cognition: normal speech Psychiatric: Orientation: oriented to person and cooperative; + not oriented to place and + not oriented to time Apperance: appropriately groomed Speech: normal rate/rhythm/volume of speech Affect: euthymic affect Results & Data Vital Signs (Past 12 Hours) Vital Signs Temp Pulse Pulse Resp BP BP Pulse Ox 05/05/19 18:00 97 H 23 166/88 H 97 05/05/19 17:30 105 H 41 H 167/85 H 100 05/05/19 17:00 105 H 37 H 158/92 H 96 05/05/19 16:32 109 H 33 H 144/80 H 100 05/05/19 16:25 101 H 26 H 144/80 H 99 05/05/19 15:41 99 05/05/19 14:35 36.5 C 107 H 17 150/88 H 98 Diagnostic Findings CXR: calcified aortic arch, but otherwise neg for acute ECG Indication: tachycardia Code Status & VTE Plan Code Status Full code, although pt states no prolonged mechanical life support, feeding tubes, etc VTE Prophylaxis Plan VTE Prophylaxis will be ordered: Yes PG Care Time/CCT Total # of Minutes Spent Total Time Spent with Patient: Total time spent is greater than 50% in coordination of care (as documented) at patient's floor/unit and/or counseling patient:
[2019-05-05] MEDS ORDERED: MAGNESIUM HYDROXIDE SUSP 30 ML UDC PO PRN (20:52)
[2019-05-05] MEDS ORDERED: ACETAMINOPHEN 325 MG TAB PO PRN (20:52)
[2019-05-05] MEDS ORDERED: ONDANSETRON INJ 2 MG/ML 2 ML VIAL IV PRN (20:52)
[2019-05-05] MEDS: MEMANTINE HCL 5 MG TAB PO SCH (22:32)
[2019-05-05] MEDS: APIXABAN 2.5 MG TAB PO SCH (22:32)
[2019-05-05] MEDS ORDERED: DiphenhydrAMINE HCL 50 MG/ML VIAL IV STA (23:08)
[2019-05-06] MEDS: MEMANTINE HCL 5 MG TAB PO SCH ×3 (00:20→20:14)
[2019-05-06] MEDS: APIXABAN 2.5 MG TAB PO SCH ×3 (00:20→20:14)
--- NOTE | 2019-05-06 00:38 | Emergency Department Note ---
Entered by Neema Collazo acting as a scribe for ED Provider Note CHIEF COMPLAINT: Weakness HISTORY OF PRESENT ILLNESS: The patient is an 89 year old female who presents to the Emergency Room with complaints of worsening weakness beginning 2 weeks ago. Per , the patient seems more fatigued and is not eating as much as usual. Per , the patient has lost a lot of weight in the past few weeks. Per , the patient took a long nap today before lunch which is not usual for her. Per , the patient has seemed slower the past few days but he notes that it is sometimes hard to tell because of her dementia. Per , the patient had a recent cardiology appointment where she had a medication adjustment. Per , the patient had blood work done 9 days ago. Per , the patient was recently hospitalized for 3 days for tachycardia. The patient denies pain. HPI and ROS limited secondary to dementia. REVIEW OF SYSTEMS: See HPI for pertinent positives and negatives. HPI and ROS limited secondary to dementia. PMHx/PSHx: COPD, dementia, hypertension, hyperglycemia, pneumonia, PVC and glaucoma of both eyes. SOCIAL HISTORY: Patient lives at home. PHYSICAL EXAM: GENERAL: Awake, alert, well-appearing, in no distress HENT: Normocephalic, atraumatic. Oropharynx unremarkable. EYES: PERRL. Normal conjunctiva. Sclera non-icteric. NECK: Inspection normal. Non-tender. Supple. No nuchal rigidity. FROM. No masses. RESPIRATORY: Clear to auscultation. No wheezes. No rales. Normal respiratory effort. CARDIAC: Normal rate. Normal rhythm. No murmurs. No rubs. Extremities warm and well perfused. Pulses equal. No JVD. GI: Soft, non-distended. No tenderness to palpation. No rebound or guarding. No masses. RECTAL: Deferred. MUSCULOSKELETAL: Atraumatic. Chest examination reveals no tenderness. The back is symmetrical on inspection without obvious abnormality. There is no CVA tenderness to palpation. No joint edema. LOWER EXTREMITIES: Calves are equal size bilaterally and non-tender. No edema. No discoloration. NEURO: Demented sensorium. No sensory or motor deficits noted. SKIN: No rash or jaundice noted. EMERGENCY DEPARTMENT COURSE: 1531: Past medical records reviewed. The patient was evaluated in room A11A, and a complete history and physical examination were performed. 1729: The patient has a positive troponin. 1802: I discussed the patient's case with Dr. Servin- [facility] Hospitalist. She will evaluate the patient for further management. MEDICAL DECISION MAKING: A11 Prior records/ancillary studies reviewed. Nursing notes reviewed and agree them. Additional history obtained from patient's . The patient's history was concerning for fatigue and weakness. Differential diagnosis: Etiologies such as metabolic, infection, hypo/hyperglycemia, electrolyte abnormalities, cardiac sources, intracerebral event, toxicologic, neurologic, as well as others were entertained. Physical examination: As above. No focal findings. Patient has dementia. IV [place] Sal[place] hydration On reassessment the patient felt better. Diagnostics interpretation by me: ECG: Negative for acute ischemic change. The labs revealed an unremarkable CBC and chemistry panel. The patient's troponin is mildly elevated. Urinalysis negative. Imaging studies: Chest x-ray negative for acute process. The patient has an elevated troponin. She has advanced dementia and cannot provide any details for her history. The does help. He notes that she has been fatigued today. Because of the situation further management will be necessary in the hospital. The patient is currently anticoagulated. Consultation: A consultation was placed with the hospitalist. The case was discussed and diagnostics were reviewed. The patient was evaluated in the ER for further treatment. IMPRESSION: Weakness, dementia, elevated troponin. PLAN: Admitted as inpatient The scribe's documentation has been prepared under my direction and personally reviewed by me in its entirety. I confirm that the note above accurately reflects all work, treatment, procedures, and medical decision making performed by me. Impression & Plan Weakness, Dementia, Elevated troponin Past Med/Surg History Medical History Abnormal electrocardiogram (Acute) Acquired deviated nasal septum (Acute) Chronic sinusitis (Acute) COPD (chronic obstructive pulmonary disease) (Chronic) COPD (chronic obstructive pulmonary disease) (Chronic) Dementia (Chronic) Glaucoma of both eyes (Acute) 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) Hyperglycemia (Acute) Hypertension (Chronic) Intrinsic asthma (Chronic) Laceration of arm (Inactive) Nasal polyps Orthostatic hypotension (Resolved) Osteoporosis (Acute) Paroxysmal atrial fibrillation (Chronic) Pleural effusion on left (Resolved) Pneumonia (Resolved) Premature ventricular contractions (Acute) Syncope (Resolved) Surgical History Hx of cataract surgery Family History Mother Hypertension Kidney disease Social History Preferred Language: Ukrainian Communication Ability: Effective Pollution Control Chemist Required: No Beliefs That Will Affect Care: None Current Living Situation: Spouse Current Living Situation Comment: -[place] current occupational status: retired Feels Safe at Home: Yes Smoking Status: Former smoker Second Hand Exposure: No ; Hx Alcohol Use: Yes Alcohol type: beer and wine Hx Substance Use: No Results & Data Vital Signs Vital Signs - 24 hr 05/05/19 14:35 05/05/19 15:41 05/05/19 16:25 Temperature 36.5 C Temperature Source Oral Pulse Rate - Lying Pulse Rate - Sitting Pulse Rate - Standing Pulse Rate 107 H Pulse Rate [Apical] 101 H Pulse Rate from SpO2 Sensor Pulse Rhythm [Apical] Irregular Respiratory Rate 17 26 H Respiratory Effort / Characteristics Non-Labored Non-Labored Respiratory Depth Normal Normal Blood Pressure - Lying Blood Pressure - Sitting Blood Pressure- Standing Blood Pressure 150/88 H Blood Pressure [Left Arm] 144/80 H Blood Pressure Mean 108 Blood Pressure Mean [Left Arm] 101 Blood Pressure Position Sitting Blood Pressure Position [Left Arm] Sitting Pulse Oximetry 98 99 99 Oxygen Delivery Method Room Air Room Air Room Air Sepsis Recent Fever Within 48 Hours No Sepsis New/Unexplained Change in Mental Status No Sepsis Action Taken by Nursing No Action Required 05/05/19 16:32 05/05/19 17:00 05/05/19 17:30 Temperature Temperature Source Pulse Rate - Lying Pulse Rate - Sitting Pulse Rate - Standing Pulse Rate 109 H 105 H 105 H Pulse Rate [Apical] Pulse Rate from SpO2 Sensor 106 H 106 H 104 H Pulse Rhythm [Apical] Respiratory Rate 33 H 37 H 41 H Respiratory Effort / Characteristics Respiratory Depth Blood Pressure - Lying Blood Pressure - Sitting Blood Pressure- Standing Blood Pressure 144/80 H 158/92 H 167/85 H Blood Pressure [Left Arm] Blood Pressure Mean 98 108 107 Blood Pressure Mean [Left Arm] Blood Pressure Position Blood Pressure Position [Left Arm] Pulse Oximetry 100 96 100 Oxygen Delivery Method Sepsis Recent Fever Within 48 Hours Sepsis New/Unexplained Change in Mental Status Sepsis Action Taken by Nursing 05/05/19 17:44 05/05/19 18:00 Temperature Temperature Source Pulse Rate - Lying 101 H Pulse Rate - Sitting 106 H Pulse Rate - Standing 108 H Pulse Rate 97 H Pulse Rate [Apical] Pulse Rate from SpO2 Sensor Pulse Rhythm [Apical] Respiratory Rate 23 Respiratory Effort / Characteristics Respiratory Depth Blood Pressure - Lying 185/96 H Blood Pressure - Sitting 158/82 H Blood Pressure- Standing 129/115 H Blood Pressure 166/88 H Blood Pressure [Left Arm] Blood Pressure Mean 112 Blood Pressure Mean [Left Arm] Blood Pressure Position Blood Pressure Position [Left Arm] Pulse Oximetry 97 Oxygen Delivery Method Room Air Sepsis Recent Fever Within 48 Hours Sepsis New/Unexplained Change in Mental Status Sepsis Action Taken by Group Home Medications Current Medication List: was personally reviewed by me Laboratory Data Attestation: I reviewed the patient's lab results. Result diagrams: 05/05/19 16:35 05/05/19 16:35 Lab Results 05/05/19 05/05/19 05/05/19 Range/Units 16:35 16:35 17:37 WBC 10.43 (4.8-10.8) K/uL RBC 4.06 L (4.2-5.4) M/uL Hgb 12.6 (12.0-16.0) g/dL Hct 37.9 (37-47) % MCV 93.3 (80-100) fL MCH 31.0 (25-34) pg MCHC 33.2 (32-36) g/dL RDW Std Deviation 52.6 H (36.4-46.3) fL RDW Coeff of Zack 15.4 H (11.5-14.5) % Plt Count 364 (130-400) K/uL MPV 9.0 (7.4-10.4) fL Immature Gran % (Auto) 0.8 % Neut % (Auto) 68.9 % Lymph % (Auto) 22.0 % Sac % (Auto) 7.7 % Eos % (Auto) 0.5 % Baso % (Auto) 0.1 % Immature Gran # (Auto) 0.08 H (0.00-0.02) K/uL Neut # (Auto) 7.20 H (1.4-6.5) K/uL Lymph # (Auto) 2.29 (1.2-3.4) K/uL Sac # (Auto) 0.80 H (0.11-0.59) K/uL Eos # (Auto) 0.05 (0-0.5) K/uL Baso # (Auto) 0.01 (0-0.2) K/uL Anisocytosis Present Sodium 141 (136-145) mmol/L Potassium 3.7 (3.5-5.1) mmol/L Chloride 109 H (98-107) mmol/L Carbon Dioxide 28 (21-32) mmol/L Anion Gap 4.0 (3-11) BUN 18 (7-18) mg/dl Creatinine 0.83 (0.6-1.2) mg/dl Est Cr Clr Drug Dosing Not Reportable Est GFR ( Amer) 73.0 Est GFR (Non-Af Amer) 63.0 BUN/Creatinine Ratio 22.2 H (10-20) Glucose 86 (70-99) mg/dl Calcium 9.1 (8.5-10.1) mg/dl Magnesium 2.1 (1.8-2.4) mg/dl Total Bilirubin 0.6 (0.2-1) mg/dl AST 18 (15-37) U/L ALT 11 L (12-78) U/L Alkaline Phosphatase 46 (45-117) U/L Troponin I 0.408 H* (0-0.045) ng/ml Total Protein 6.4 (6.4-8.2) gm/dl Albumin 3.1 L (3.4-5.0) gm/dl Globulin 3.3 (2.5-4.0) gm/dl Albumin/Globulin Ratio 0.9 (0.9-2) TSH 2.590 (0.300-4.500) uIu/ml Urine Color Dark Yellow Urine Appearance Clear (Clear) Urine pH 7.0 (4.5-7.5) Ur Specific [place] 1.023 (1.000-1.030) Urine Protein Negative (Negative) Urine Glucose (UA) Negative (Negative) Urine Ketones Negative (Negative) Urine Blood Negative (Negative) Urine Nitrite Negative (Negative) Urine Bilirubin Negative (Negative) Urine Urobilinogen Negative (Negative) Ur Leukocyte Esterase Negative (Negative) Administered Medications Apixaban (Eliquis) 2.5 mg PO BID DINO Stop: 06/04/19 20:59 Last Admin: 05/06/19 00:20 Dose: Not Given Documented by: [id number] Memantine (Namenda) 5 mg PO BID DINO Stop: 06/04/19 20:59 Last Admin: 05/06/19 00:20 Dose: Not Given Documented by: [id number] Discontinued Medications Diphenhydramine HCl (Benadryl) 25 mg IV NOW STA Stop: 05/05/19 23:09 Last Admin: 05/05/19 23:28 Dose: 25 mg Documented by: [id number] Sodium Chloride (Nss) 500 mls @ 999 mls/hr IV .Q31M DINO Stop: 05/05/19 16:15 Last Infusion: 05/05/19 17:00 Dose: 0 mls/hr Documented by: [id number] Admin: 05/05/19 16:29 Dose: 999 mls/hr Documented by: [id number] Imaging Data Radiologist's Impression: Radiology results as stated below per my review and the radiologist's interpretation: XR chest 1V portable HISTORY: 89 years-old Female weakness acute weakness COMPARISON: Chest radiograph 04/27/2019 TECHNIQUE: Portable AP view of the chest FINDINGS: Cardiac silhouette is enlarged, unchanged. Calcified plaque of the thoracic aortic arch. The patient is rotated. Lungs are hyperinflated. No pneumothorax. Chronic blunting of the costophrenic angles calcifications at the lung apices. No large pleural effusion, overt pulmonary edema or new focal airspace consolidation. 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 Convex left scoliosis of the upper thoracic spine. IMPRESSION: Chronic findings as above without acute process. ACT 112: Negative or not required by law. The above report was generated using voice recognition software. It may contain grammatical, syntax or spelling errors. Electronically signed by: Ty Mills M.D. 05/05/2019 4:23 PM ECG Data Attestation: I personally reviewed and interpreted this ECG as follows: Indication: + weakness Rate (beats per minute): 104 Rhythm: sinus tachycardia ECG ST segments: + repolarization abnormalities; no ST elevation ECG Findings: + Q waves (anteroseptal), + PVCs and + LVH Blood Pressure Blood Pressure Findings: Elevated blood pressure Blood Pressure Disposition: further management by hospitalist Discharge Plan Visit Data *Final* Discharge Date/Time: 05/05/19 19:56 Chief Complaint: Weakness Stated Complaint: WEAKNESS ED Provider: Evgeny Maldonado Discharge Problem: Weakness, Dementia, Elevated troponin Patient Disposition: Admitted As Inpatient Discharge Instructions Interventions: ED Discharge Assessment Last Done: 05/05/19 19:56 Discharge Problem: Dementia Qualifiers: Dementia type: unspecified type Dementia behavioral disturbance: without behavioral disturbance Qualified Code(s): F03.90 - Unspecified dementia without behavioral disturbance The scribe's documentation has been prepared under my direction and personally reviewed by me in its entirety. I confirm that the note above accurately reflects all work, treatment, procedures, and medical decision making performed by me.
[2019-05-06] MEDS ORDERED: DIGOXIN 0.125 MG TAB PO SCH (09:00)
[2019-05-06] MEDS ORDERED: AMIODARONE 200 MG TAB PO ONE (09:00)
[2019-05-06] MEDS ORDERED: MEGESTROL ACETATE 800 MG/20 ML UDP PO SCH (09:00)
[2019-05-06] MEDS: FLUTICASONE FUROATE 100MCG 14 PUFFS/INHALER INH SCH (09:53)
[2019-05-06] MEDS: FLUTICASONE PROPIONATE NA SPR 16 GM BTL SCH (09:53)
[2019-05-06] MEDS: INDAPAMIDE 1.25 MG TAB PO SCH (09:56)
[2019-05-06] MEDS: MEGESTROL ACETATE SUSP 400 MG/10 ML UDC PO SCH (10:07)
--- NOTE | 2019-05-06 10:47 | Cardiology Consultation ---
Date of Consultation May 06, 2019 Assessment & Plan (1) Atrial flutter: 2. Tachybrady syndrome 3. Elevated troponin 4. Hypertension 5. Dementia 6. Failure to thrive Patient discussed with Dr. Le. Patient's second admission this month with failure to thrive. At prior admission was noted to be significantly bradycardic and metoprolol was discontinued. Telemetry reviewed and she appears to have a tachybrady syndrome. When in atrial flutter heart rate is not controlled and has episodes of a junctional bradycardia. No syncopal episodes. No current indication for pacemaker but may need eventually. At this point recommend discontinuing her digoxin. Will start amiodarone 100 mg daily. Goal is not necessarily to convert her to sinus rhythm but control her ventricular rate without causing significant bradycardia. Troponin was mildly elevated at prior admission and peaked this admission at 0.408. No chest pain. Echo with normal LV function and wall motion. Suspect this represents demand ischemia and no further ischemic evaluation needed. ADDENDUM (Dr. Le): Patient seen and examined. Agree with plan as outlined above by Paula Gonzalez PA-C. Digoxin may contribute to bradycardia and has not proven effective for rate control (given her paroxysmal recurrence of ta chycardia), therefore discontinue digoxin. She was on beta-blockers which were stopped due to bradycardia at the time of her last admission. Currently hope to achieve rate control (and possibly rhythm control) with very low-dose amiodarone (100 mg daily). Rather than order as daily medication, would reassess each morning to ensure she does not become excessively bradycardic, then reorder amiodarone 100 mg each day. We will continue to titrate amiodarone until her tachycardia is controlled. If if this causes her to become excessively bradycardic or develop relative bradycardia with symptoms (currently unclear which of her fatigue symptoms are due to uncontrolled recurrent tachycardia versus relative bradycardia), she may benefit from pacemaker placement. History of Present Illness Attending Physician: Consuelo Schwartz MD History of Present Illness Mrs. Hui is an 89 year old female with a medical history significant for paroxysmal atrial flutter, hypertension, PVCs, dementia. She is followed by Dr. Peters as an outpatient. Patient had dementia and her provides the majority of the history. He reports that over the past 3 months she has been deteriorating. She has become more weak and has a very poor appetite. She was previously very active. She now needs assistance performing ADLs. It was felt her metoprolol may be contributing to her decreased appetite and several months ago was reduced from 100 mg daily to 50 mg daily. She was then admitted on 04/28/2019 with increased weakness. She had not suffered any syncope or falls. She was found to be bradycardic at times with heart rates into the 30s and her metoprolol was discharged. She was continued on digoxin. Troponin was also mildly elevated at that time (0.063). Echo showed normal LV function and wall motion. Her reports that since discharge there has been no improvement. She continues to be very weak and confused. No new symptoms. She currently denies chest pain and reports she has not been complaining of any at home. No shortness of breath, orthopnea or PND. No palpitations. No lightheadedness, near syncope or syncope. No abnormal bleeding. Of note patient denied medications last evening. She does not recall this. Social history: Lives with . No tobacco, alcohol or drug use. Allergies Allergy/AdvReac Type Severity Reaction Status Date / Time Sulfa (Sulfonamide Allergy Mild RASH Verified 05/05/19 16:26 Antibiotics) INDIGO Inhibitors Allergy Unknown Rash Verified 05/05/19 16:26 amoxicillin [From Augmentin] Allergy Unknown Diarrhea Verified 05/05/19 16:26 clavulanic acid Allergy Unknown Diarrhea Verified 05/05/19 16:26 [From Augmentin] Home Medications Home Medications Medication Instructions Recorded Confirmed Type Eliquis 2.5 mg PO AMPM 10/14/18 05/05/19 History indapamide 1.25 mg tablet 1.25 mg PO MOWEFR tab 11/26/18 05/05/19 History Flovent HFA 2 puffs INHALATION QAM 04/27/19 05/05/19 History digoxin 125 mcg PO QAM 04/27/19 05/05/19 History fluticasone propionate [Flonase 2 sprays INTRANASAL QAM 04/27/19 05/05/19 History Allergy Relief] megestrol 400 mg PO QAM 04/27/19 05/05/19 History memantine 5 mg PO AMPM 04/27/19 05/05/19 History Patient History Medical History Abnormal electrocardiogram (Acute) Acquired deviated nasal septum (Acute) Chronic sinusitis (Acute) COPD (chronic obstructive pulmonary disease) (Chronic) COPD (chronic obstructive pulmonary disease) (Chronic) Dementia (Chronic) Glaucoma of both eyes (Acute) 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) Hyperglycemia (Acute) Hypertension (Chronic) Intrinsic asthma (Chronic) Laceration of arm (Inactive) Nasal polyps Orthostatic hypotension (Resolved) Osteoporosis (Acute) Paroxysmal atrial fibrillation (Chronic) Pleural effusion on left (Resolved) Pneumonia (Resolved) Premature ventricular contractions (Acute) Syncope (Resolved) Surgical History Hx of cataract surgery Family History Mother Hypertension Kidney disease Social History Preferred Language: Gu[place]ian Communication 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 HEENT: Head is normal. PERRLA. EOMI. Sclerae anicteric. Ears, nose and throat unremarkable. Mucous membranes moist. Neck: Normal carotid upstrokes, no bruits. No appreciable JVD. Lungs: Clear to auscultation bilaterally without rales, rhonchi or wheezes. Cardiac: irregular. S1-S2 normal. No appreciable murmur, gallop or rub. Abdomen: Soft and nontender. Bowel sounds normal. No mass or organomegaly. No abdominal bruit. Extremities/vascular: Well perfused. No peripheral edema. Radial, DP and PT pulses 2+ bilaterally Skin: No rash or abnormal lesions. Normal turgor. Neurologic: Nonfocal Psychiatric: Affect appropriate. Alert and oriented. Results & Data Vital Signs (Past 12 Hours) Vital Signs Temp Pulse Pulse Resp BP Pulse Ox 01/17/20 07:28 106 H 05/06/19 06:57 36.6 C 106 H 18 164/84 H 98 05/06/19 02:43 36.4 C L 96 H 19 139/74 98 05/05/19 23:05 96 H 20 140/80 97 Laboratory Results Laboratory Results - last 24 hr 05/05/19 05/05/19 05/05/19 16:35 16:35 17:37 WBC 10.43 RBC 4.06 L Hgb 12.6 Hct 37.9 MCV 93.3 MCH 31.0 MCHC 33.2 RDW Std Deviation 52.6 H RDW Coeff of Zack 15.4 H Plt Count 364 MPV 9.0 Immature Gran % (Auto) 0.8 Neut % (Auto) 68.9 Lymph % (Auto) 22.0 [place] % (Auto) 7.7 Eos % (Auto) 0.5 Baso % (Auto) 0.1 Immature Gran # (Auto) 0.08 H Neut # (Auto) 7.20 H Lymph # (Auto) 2.29 [place] # (Auto) 0.80 H Eos # (Auto) 0.05 Baso # (Auto) 0.01 Anisocytosis Present Sodium 141 Potassium 3.7 Chloride 109 H Carbon Dioxide 28 Anion Gap 4.0 BUN 18 Creatinine 0.83 Est Cr Clr Drug Dosing Not Reportable Est GFR ( Amer) 73.0 Est GFR (Non-Af Amer) 63.0 BUN/Creatinine Ratio 22.2 H Glucose 86 Calcium 9.1 Magnesium 2.1 Total Bilirubin 0.6 AST 18 ALT 11 L Alkaline Phosphatase 46 Troponin I 0.408 H* Total Protein 6.4 Albumin 3.1 L Globulin 3.3 Albumin/Globulin Ratio 0.9 TSH 2.590 Urine Color Dark Yellow Urine Appearance Clear Urine pH 7.0 Ur Specific [place] 1.023 Urine Protein Negative Urine Glucose (UA) Negative Urine Ketones Negative Urine Blood Negative Urine Nitrite Negative Urine Bilirubin Negative Urine Urobilinogen Negative Ur Leukocyte Esterase Negative Digoxin 05/05/19 05/05/19 05/06/19 19:13 21:02 03:00 WBC RBC Hgb Hct MCV MCH MCHC RDW Std Deviation RDW Coeff of Zack Plt Count MPV Immature Gran % (Auto) Neut % (Auto) Lymph % (Auto) [place] % (Auto) Eos % (Auto) Baso % (Auto) Immature Gran # (Auto) Neut # (Auto) Lymph # (Auto) [place] # (Auto) Eos # (Auto) Baso # (Auto) Anisocytosis Sodium Potassium Chloride Carbon Dioxide Anion Gap BUN Creatinine Est Cr Clr Drug Dosing Est GFR ( Amer) Est GFR (Non-Af Amer) BUN/Creatinine Ratio Glucose Calcium Magnesium Total Bilirubin AST ALT Alkaline Phosphatase Troponin I 0.339 H* 0.291 H* Total Protein Albumin Globulin Albumin/Globulin Ratio TSH Urine Color Urine Appearance Urine pH Ur Specific [place] Urine Protein Urine Glucose (UA) Urine Ketones Urine Blood Urine Nitrite Urine Bilirubin Urine Urobilinogen Ur Leukocyte Esterase Digoxin 1.5 ECG Additional Comments: Tele reviewed-- atrial flutter with elevated ventricular rates in the low 100s. Episodes of what appears to be junctional bradycardia int he 50s. PG Care Time/CCT Total # of Minutes Spent Total Time Spent with Patient: Total time spent is greater than 50% in coordination of care (as documented) at patient's floor/unit and/or counseling patient:
--- NOTE | 2019-05-06 11:15 | Electrocardiogram Report ---
Test Reason : Blood Pressure : / mmHG Vent. 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 rate has increased BY 54 BPM Otherwise no significant change Confirmed by Kamlesh Le ([id number]) on 05/06/2019 11:14:49 AM Referred By: REFERRED SELF Confirmed By:Kamlesh Le
--- NOTE | 2019-05-06 11:57 | Electrocardiogram Report ---
Test Reason : Blood Pressure : / mmHG Vent. Rate : 107 BPM Atrial Rate : 107 BPM P-R Int : 180 ms QRS Dur : 084 ms QT Int : 290 ms P-R-T Axes : 018 075 260 degrees QTc Int : 387 ms Atrial flutter with occasional Premature ventricular complexes Left ventricular hypertrophy Old Septal infarct (cited on or before 14-OCT-2018) Diffuse Nonspecific ST and T wave abnormality Abnormal ECG When compared with ECG of 05-MAY-2019 15:50, No significant change In retrospect, prior tracing likely atrial flutter (low amplitude) also Confirmed by Kamlesh Le ([id number] on 05/06/2019 11:57:23 AM Referred By: REFERRED SELF Confirmed By:Kamlesh Le
--- NOTE | 2019-05-06 13:24 | Hospitalist Progress Note ---
Date of Service May 06, 2019 Assessment & Plan (1) Weakness: Presented with persistent generalized weakness, may be related to tachybradycardia syndrome as below Also related to multifactorial in the setting of recent weight loss and poor p.o. intake (2) Tachy-thu syndrome: With rates into the 30s last admission metoprolol was discontinued but digoxin was continued Here with rates in the 50s to 1 teens at times all in either a flutter sometimes junctional rhythm and bradycardia Discussed with cardiology -Discontinue digoxin, remains off of beta-ming -Started low-dose amiodarone 100 mg today and will re-dose daily if not too bradycardic -Will likely need a pacemaker next week (3) Atrial flutter: With tachybradycardia syndrome as above -Continues on apixaban at 2.5 mg p.o. twice daily for age greater than 80 and weight less than 60 kg -Amiodarone starting today as above (4) Elevated troponin: Very mildly elevated and not trending upwards, likely myocardial demand ischemia in the setting of tachycardia and not acute coronary syndrome (5) Failure to thrive: Improved appetite with megestrol which was started recently Severely underweight with a BMI of 14, likely related to advanced dementia Monitor and consider palliative care consultation (6) Atrial fibrillation: Now in a flutter as well Continue medications as above (7) Dementia: Advanced dementia -Follows with neurology -Continue memantine 5 mg p.o. twice daily Sitter when not present to reduce fall risk as well as agitation related to confusion (8) Hypertension: Continue indapamide Thursday (9) Severe protein-calorie malnutrition: Severe protein-calorie malnutrition; Cachexia, BMI 15.4 kg/m*m -Consult nutrition (10) Cachexia: As above Related to dementia (11) DVT prophylaxis: Yoan SCDs Disposition-remain on PCU Subjective Pt sitting up in bed with eyes closed but responds with yes and no answers only while keeping her eyes closed. concerned she keeps trying to pull her leads and IVs out. He reports she has been very fatigued since last admission and before that. Her appetite has improved since being on Megace or the last 2 weeks. Tele with possible junctional rhythm versus slow a flutter, thu in the 50s, variable rates and also aflutter in the 100s I discussed the case at length with the riprap worker today Review of Systems Review of Systems: Unobtainable due to cognitive status Physical Exam Constitutional: + cachectic and + underweight; no acute distress Eyes: + anicteric sclerae Neck: trachea midline, no thyromegaly Respiratory: normal respiratory effort, lungs clear to auscultation Cardiovascular: Rate/Rhythm: regular rhythm and + bradycardic Heart Sounds: no murmur Extremities: no edema Chest (Breasts): Chest: normal inspection of chest Gastrointestinal (Abdomen): Inspection/Auscultation: normal bowel sounds and + scaphoid; + abdomen abnormal to inspection Percussion/Palpation: abdomen soft; abdomen nontender Musculoskeletal: Extremities: extremities normal to inspection; no cyanosis and no clubbing Skin: no rashes, warm and dry Neurologic: moves all extremities Psychiatric: Orientation: alert Lymphatic: no lymphedema Results & Data Vital Signs (Past 12 Hours) Vital Signs Temp Pulse Pulse Resp BP Pulse Ox 05/06/19 11:37 37.0 C 75 18 158/72 H 96 05/06/19 07:28 106 H 05/06/19 06:57 36.6 C 106 H 18 164/84 H 98 05/06/19 02:43 36.4 C L 96 H 19 139/74 98 Laboratory Results Labs reviewed PG Care Time/CCT Total # of Minutes Spent Total Time Spent with Patient: Total time spent is greater than 50% in coordination of care (as documented) at patient's floor/unit and/or counseling patient:
[2019-05-07] MEDS: MEMANTINE HCL 5 MG TAB PO SCH ×2 (08:54→22:06)
[2019-05-07] MEDS: FLUTICASONE FUROATE 100MCG 14 PUFFS/INHALER INH SCH (08:55)
[2019-05-07] MEDS: APIXABAN 2.5 MG TAB PO SCH ×2 (08:55→22:07)
[2019-05-07] MEDS: FLUTICASONE PROPIONATE NA SPR 16 GM BTL SCH (08:55)
[2019-05-07] MEDS: MEGESTROL ACETATE SUSP 400 MG/10 ML UDC PO SCH (08:55)
--- NOTE | 2019-05-07 09:34 | Cardiology Progress Note ---
Date of Service May 07, 2019 Subjective The history is obtained from the who is at the bedside. She denies any chest pain or chest pressure or palpitations or lightheadedness. He notes that her appetite is improved and she seems more alert. She denies any shortness of breath. Results & Data Vital Signs (Past 12 Hours) Vital Signs Temp Pulse Pulse Resp BP BP Pulse Ox 05/07/19 07:11 36.5 C 105 H 16 153/87 H 98 05/07/19 04:00 36.3 C L 108 H 16 155/71 H 100 05/07/19 00:35 105 H 05/06/19 23:11 36.7 C 100 H 20 155/80 H 98 she is awake alert she is oriented to person only HEENT: 2+ carotid upstrokes no evidence of carotid bruits her hearing is mildly diminished Lungs: Clear to auscultation bilaterally no rales rhonchi or wheezing Heart: Irregular rate and rhythm Abdomen: Soft nontender distended positive bowel sounds Extremities: No clubbing cyanosis or edema Assessment & Plan (1) Atrial flutter: 2. Tachybrady syndrome 3. Elevated troponin 4. Hypertension 5. Dementia 6. Failure to thrive 7. Normal LV function Patient's second admission this month with failure to thrive. At prior admission was noted to be significantly bradycardic and metoprolol was discontinued. T elemetry reviewed and she appears to have a tachybrady syndrome. When in atrial flutter heart rate is not controlled and has episodes of a junctional bradycardia. No syncopal episodes. Although she has had some bradycardic episodes overnight I would continue with amiodarone 100 mg daily. I would try to avoid a pacemaker at all cost. She has advanced dementia and is extremely tiny. There is significant risk of a pneumothorax and/or lead fracture in the future. At this point with the bradycardia episodes she appears to be asymptomatic. Her heart rate this morning is in the low 100s and she is asymptomatic with this as well. In addition her LV function is normal and she does not have any heart failure symptoms.
[2019-05-07 09:37] LABS: Basophils # (auto) 0.01 K/uL (0-0.2); Basophils % (auto) 0.1 %; Eosinophils # (auto) 0.07 K/uL (0-0.5); Eosinophils % (auto) 0.8 %; Immature Granulocytes # (auto) 0.04 K/uL (0.00-0.02); Immature Granulocytes % (auto) 0.4 %; Lymphocytes # (auto) 2.45 K/uL (1.2-3.4); Mean Corpuscular Hemoglobin 31.3 pg (25-34); Mean Corpuscular Hgb Conc 33.3 g/dL (32-36); Mean Platelet Volume 9.1 fL (7.4-10.4); Monocytes % (auto) 7.7 %; Neutrophils # (auto) 5.81 K/uL (1.4-6.5); Platelet Count 371 K/uL (130-400); RDW Coefficient of Variation 15.5 % (11.5-14.5); RDW Standard Deviation 53.4 fL (36.4-46.3); Red Blood Count 4.15 M/uL (4.2-5.4); White Blood Count 9.08 K/uL (4.8-10.8)
[2019-05-07 10:05] LABS: BUN Creatinine Ratio 20.5 (10-20); Calcium 8.8 mg/dl (8.5-10.1); Creatinine Clr Calc Pharmacy 29.1 ml/min; Est GFR (African American) 70.9; Est GFR (Non-African American) 61.2; Potassium 3.7 mmol/L (3.5-5.1)
[2019-05-07] MEDS ORDERED: POTASSIUM CHLORIDE 20 MEQ TABCR PO STA (10:18)
--- NOTE | 2019-05-07 11:23 | Electrocardiogram Report ---
Test Reason : Blood Pressure : / mmHG Vent. 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
--- NOTE | 2019-05-07 12:12 | Hospitalist Progress Note ---
Date of Service May 07, 2019 Assessment & Plan (1) Weakness: Presented with persistent generalized weakness, may be related to tachybradycardia syndrome as below Also related to multifactorial in the setting of recent weight loss and poor p.o. intake (2) Tachy-thu syndrome: With rates into the 30s last admission metoprolol was discontinued but digoxin was continued Here with rates in the 50s to 110s at times all in either a flutter sometimes junctional rhythm with bradycardia Appreciate cardiology consultation -Discontinued digoxin, remains off of beta-ming -Started low-dose amiodarone 100 mg -Cardiology today states the pacemaker should be avoided at all cost given her profound cachexia and higher risk for pneumothorax and breakage of leads. Unclear if she is even symptomatic with the bradycardia -May need pacemaker -We will ambulate her and see if she is symptomatic (3) Atrial flutter: With tachybradycardia syndrome as above -Continues on apixaban at 2.5 mg p.o. twice daily for age greater than 80 and weight less than 60 kg -Amiodarone started as above (4) Elevated troponin: Very mildly elevated and not trending upwards, likely myocardial demand ischemia in the setting of tachycardia and not acute coronary syndrome (5) Failure to thrive: Improved appetite with megestrol which was started recently Severely underweight with a BMI of 14, likely related to advanced dementia Monitor and consider palliative care consultation (6) Atrial fibrillation: Now in a flutter as well Continue medications as above (7) Dementia: Advanced dementia -Follows with neurology -Continue memantine 5 mg p.o. twice daily Sitter when not present to reduce fall risk as well as agitation related to confusion (8) Hypertension: Continue indapamide Thursday (9) Severe protein-calorie malnutrition: Severe protein-calorie malnutrition; Cachexia, BMI 15.4 kg/m*m -Consult nutrition (10) Cachexia: As above Related to dementia (11) DVT prophylaxis: Eliquis SCDs Disposition-remain on PCU Subjective Patient is eating today as is feeding her. Continues to be tachycardic and bradycardic at times in a flutter and sometimes junctional rhythm. Rates ranged from the 40s to the low 100s. is concerned that she needs to stay active and get out of bed. Discussed with nursing about ambulating the halls with assistance. Patient denies any problems. She is confused Review of Systems Review of Systems: All systems reviewed & are unremarkable except as noted in HPI & below Physical Exam Constitutional: + cachectic and + underweight; no acute distress Eyes: + anicteric sclerae Neck: trachea midline, no thyromegaly Respiratory: normal respiratory effort, lungs clear to auscultation Cardiovascular: Rate/Rhythm: regular rhythm and + bradycardic Heart Sounds: no murmur Extremities: no edema Chest (Breasts): Chest: normal inspection of chest Gastrointestinal (Abdomen): Inspection/Auscultation: normal bowel sounds and + scaphoid; + abdomen abnormal to inspection Percussion/Palpation: abdomen soft; abdomen nontender Musculoskeletal: Extremities: extremities normal to inspection; no cyanosis and no clubbing Skin: no rashes, warm and dry Neurologic: moves all extremities Psychiatric: Orientation: alert Lymphatic: no lymphedema Results & Data Vital Signs (Past 12 Hours) Vital Signs Temp Pulse Pulse Resp BP BP Pulse Ox 05/07/19 11:24 36.5 C 54 L 17 150/63 H 98 05/07/19 07:11 36.5 C 105 H 16 153/87 H 98 05/07/19 04:00 36.3 C L 108 H 16 155/71 H 100 05/07/19 00:35 105 H Laboratory Results Labs reviewed, potassium noted to be 3.7 PG Care Time/CCT Total # of Minutes Spent Total Time Spent with Patient: Total time spent is greater than 50% in coordination of care (as documented) at patient's floor/unit and/or counseling patient:
[2019-05-07] MEDS: AMIODARONE 200 MG TAB PO SCH (12:43)
[2019-05-08 06:22] LABS: BUN Creatinine Ratio 24.2 (10-20); Calcium 8.7 mg/dl (8.5-10.1); Creatinine Clr Calc Pharmacy 28.1 ml/min; Est GFR (Non-African American) 58.7; Magnesium 2.1 mg/dl (1.8-2.4); Potassium 3.9 mmol/L (3.5-5.1)
[2019-05-08] MEDS ORDERED: POTASSIUM CHLORIDE 10 MEQ TABCR PO STA (08:10)
[2019-05-08] MEDS: FLUTICASONE PROPIONATE NA SPR 16 GM BTL SCH (08:30)
[2019-05-08] MEDS: MEMANTINE HCL 5 MG TAB PO SCH ×2 (08:30→22:05)
[2019-05-08] MEDS: FLUTICASONE FUROATE 100MCG 14 PUFFS/INHALER INH SCH (08:31)
[2019-05-08] MEDS: APIXABAN 2.5 MG TAB PO SCH ×2 (08:31→22:05)
[2019-05-08] MEDS: MEGESTROL ACETATE SUSP 400 MG/10 ML UDC PO SCH (08:31)
[2019-05-08] MEDS: AMIODARONE 200 MG TAB PO SCH (08:54)
--- NOTE | 2019-05-08 10:54 | Hospitalist Progress Note ---
Date of Service May 08, 2019 Assessment & Plan (1) Weakness: Presented with persistent generalized weakness, may be related to tachybradycardia syndrome as below Also related to multifactorial in the setting of recent weight loss and poor p.o. intake,dementia with general decline (2) Tachy-thu syndrome: With rates into the 30s last admission metoprolol was discontinued but digoxin was continued Here with rates in the 50s to 110s at times all in either a flutter sometimes junctional rhythm with bradycardia Appreciate cardiology consultation -Discontinued digoxin, remains off of beta-ming -Started low-dose amiodarone 100 mg and seems to be working well with rate control-not too high and not too low -Cardiology over the weekend states the pacemaker should be avoided at all cost given her profound cachexia and higher risk for pneumothorax and breakage of leads. Unclear if she is even symptomatic with the bradycardia due to advanced dementia -May need pacemaker -she has ambulated and had a shuffling gait which is her normal gait as per , however RN reports she seemed unsteady (3) Atrial flutter: With tachybradycardia syndrome as above -Continues on apixaban at 2.5 mg p.o. twice daily for age greater than 80 and weight less than 60 kg -Amiodarone started as above -now DISCONTINUED from her metoprolol and digoxin (4) Elevated troponin: Very mildly elevated and not trending upwards, likely myocardial demand ischemia in the setting of tachycardia and not acute coronary syndrome ECHO without WMAs, preserved EF (5) Failure to thrive: Improved appetite with megestrol which was started recently Severely underweight with a BMI of 14, likely related to advanced dementia Monitor is pleased with her increase in appetite (6) Atrial fibrillation: Now in a flutter as well Continue medications as above (7) Dementia: Advanced dementia -Follows with neurology -Continue memantine 5 mg p.o. twice daily Sitter when not present to reduce fall risk as well as agitation related to confusion (8) Hypertension: Continue indapamide Thursday (9) Severe protein-calorie malnutrition: Severe protein-calorie malnutrition; Cachexia, BMI 15.4 kg/m*m -Consult nutrition (10) Cachexia: As above Related to dementia (11) DVT prophylaxis: Eliquis SCDs Disposition-remain on PCU for further tele monitoring If rates remain controlled, can likely dc to home tomorrow with Home Health, has private [employer] health aides Subjective Pt eating much better than ever before in the last week. She has no complaints and is sitting in a chair at bedside. and son present and do all the talking. Pt very pleasant, continues to require a 1:1 when family not around. Tele with A-fib and flutter, rates 50s-80s mostly since last evening I discussed the case with Dr. Coe of Cardiology Review of Systems Review of Systems: Unobtainable due to cognitive status Physical Exam Constitutional: + cachectic and + underweight; no acute distress Eyes: + anicteric sclerae Neck: trachea midline, no thyromegaly Respiratory: normal respiratory effort, lungs clear to auscultation Cardiovascular: Rate/Rhythm: regular rhythm and + bradycardic Heart Sounds: no murmur Extremities: no edema Chest (Breasts): Chest: normal inspection of chest Gastrointestinal (Abdomen): Inspection/Auscultation: normal bowel sounds and + scaphoid; + abdomen abnormal to inspection Percussion/Palpation: abdomen soft; abdomen nontender Musculoskeletal: Extremities: extremities normal to inspection; no cyanosis and no clubbing Skin: no rashes, warm and dry Neurologic: moves all extremities Psychiatric: Orientation: alert Lymphatic: no lymphedema Results & Data Vital Signs (Past 12 Hours) Vital Signs Temp Pulse Resp BP Pulse Ox 05/08/19 06:50 36.6 C 52 L 20 158/68 H 98 05/08/19 06:05 36.3 C L 79 17 159/85 H 99 05/08/19 00:02 36.6 C 81 18 119/89 92 Laboratory Results labs reviewed PG Care Time/CCT Total # of Minutes Spent Total Time Spent with Patient: Total time spent is greater than 50% in coordination of care (as documented) at patient's floor/unit and/or counseling patient:
[2019-05-09 06:15] LABS: BUN Creatinine Ratio 26.6 (10-20); Calcium 8.5 mg/dl (8.5-10.1); Creatinine Clr Calc Pharmacy 30.2 ml/min; Est GFR (Non-African American) 63.9; Potassium 3.8 mmol/L (3.5-5.1)
[2019-05-09] MEDS: APIXABAN 2.5 MG TAB PO SCH (09:34)
[2019-05-09] MEDS: MEMANTINE HCL 5 MG TAB PO SCH (09:34)
[2019-05-09] MEDS: INDAPAMIDE 1.25 MG TAB PO SCH (09:34)
[2019-05-09] MEDS: AMIODARONE 200 MG TAB PO SCH (09:34)
[2019-05-09] MEDS: FLUTICASONE FUROATE 100MCG 14 PUFFS/INHALER INH SCH (09:35)
[2019-05-09] MEDS: FLUTICASONE PROPIONATE NA SPR 16 GM BTL SCH (09:35)
[2019-05-09] MEDS: MEGESTROL ACETATE SUSP 400 MG/10 ML UDC PO SCH (09:35)
--- NOTE | 2019-05-09 10:02 | Cardiology Progress Note ---
Date of Service May 09, 2019 Subjective Mrs. Hui is seen in room 222, her and son are with her and helping her with breakfast. Patient offers no complaints and states that she is feeling well, but still feels an occasional skipped beats. She denies any chest pain or shortness of breath. Overall her HR's have improved with Amiodarone Results & Data Vital Signs (Past 12 Hours) Vital Signs Temp Pulse Pulse Resp BP BP Pulse Ox 05/09/19 07:12 76 18 145/84 H 99 05/09/19 03:42 36.7 C 104 H 17 125/73 97 05/08/19 23:13 36.7 C 103 H 18 153/77 H 99 PG Care Time/CCT Total # of Minutes Spent Total Time Spent with Patient: Total time spent is greater than 50% in coordin ation of care (as documented) at patient's floor/unit and/or counseling patient:
--- NOTE | 2019-05-09 10:13 | Cardiology Progress Note ---
Date of Service May 09, 2019 Assessment & Plan (1) Atrial flutter: 2. Tachybrady syndrome 3. Elevated troponin 4. Hypertension 5. Dementia 6. Failure to thrive This is the patient's second admission this month with failure to thrive. At a prior admission was noted to be significantly bradycardic and metoprolol was discontinued. She has tachybrady syndrome. When in atrial flutter her heart rate was not controlled and she had episodes of a junctional bradycardia while on Digoxin - which was subsequently discontinued. Patient denies any dizziness, lightheadedness, weak spells, or any syncopal episodes. Continue Amiodarone 100 mg daily. Primary goal is to control her ventricular response rate without causing significant bradycardia. Troponin I was mildly elevated at prior admission and peaked this admission at 0.408 ng/ml. Patient did not experience any anginal symptoms and her Echocardiogram showed normal LV function and LV wall motion. Suspect that her elevated troponin I represented demand ischemia due to elevated HR's. No further ischemic evaluation is necessary at this time She was previously on a beta-ming which was discontinued secondary to bradycardia at the time of her last admission. Our goal to achieve rate control (and possibly rhythm control) with very low-dose Amiodarone 100 mg daily and closely reassessing her for bradycardias or cardiac pauses. If Amiodarone causes her to become excessively bradycardic or develop relative bradycardia with symptoms -- she may benefit from pacemaker placement. CARDIOLOGY ATTENDING ADDENDUM (Dr. Le): Patient seen, interviewed, and examined. Agree with above assessment and recommendations by Alejandro Sutherland PA-C. Spoke with patient's at some length regarding the risks/benefit ratio for potential pacemaker placement. She does not have any absolute indication, and it is not clear that she would benefit symptomatic early from pacemaker insertion at this point. Her felt strongly that the short term downside of a pacemaker placement would be significant (e.g., she is known to "pull at things" and it will be difficult for her to keep her arm still), thus in the absence of clear benefits he would favor NOT placing a pacemaker at this time. She still has runs of tachy dysrhythmia, but these are less frequent on the amiodarone and she has not showed any heart block or profound or symptomatic bradycardia. Therefore, would recommend discharging on her current dose of amio darone 100 mg daily to reduce the frequency of tachydysrhythmia while not resulting in extreme bradycardia. Case discussed with Dr. Mejia. Subjective Mrs. Hui is seen in room 222, her and son are with her and helping her with breakfast. Patient offers no complaints and states that she is feeling well, but still feels an occasional skipped beats. She denies any chest pain or shortness of breath. Her current HR is in the mid-70's. Digoxin was stopped earlier in this hospitalization. She is on Amiodarone 100 mg daily, but has only had 3 doses so far and is tolerating it without side effects. She has not had symptomatic bradycardias or cardiac pauses on telemetry monitoring. Patient is demented - so her family members help in asking and answering her questions. She is tolerating Eliquis without bleeding complications. Physical Exam Physical Exam: GENERAL: Patient in no acute distress. HEENT: Head is atraumatic, normocephalic. EOM's intact. Facies symmetric. No perioral cyanosis. NECK: No JVD. JVP is at the level of the clavicle sitting upright. Carotid upstrokes are + 2 bilaterally. CHEST/LUNGS: Clear to auscultation throughout all lung turner. No wheezes, rales, or crackles. CVS: S1 and S2 are slightly irregular at 76 bpm without obvious murmurs, gallops, or rubs. PMI is nondisplaced. No lifts, heaves, or thrills. No abdominal aortic or renal bruits. ABDOMINAL EXAM: Bowel sounds are present. No masses, organomegaly, or tenderness. EXTREMITIES: No clubbing or cyanosis. No edema. Intact radial pulses bilaterally. NEUROLOGIC EXAM: Patient is awake, alert, and interactive. Pleasant and cooperative. Answers questions appropriately. Speech is clear. TELEMETRY: -- Atrial flutter with variable AV conduction. -- HR have ranged from 50 to 110 bpm in the last 24 hours. -- No cardiac pauses or significant bradycardias. Results & Data Vital Signs (Past 12 Hours) Vital Signs Temp Pulse Pulse Resp BP BP Pulse Ox 05/09/19 07:12 76 18 145/84 H 99 05/09/19 03:42 36.7 C 104 H 17 125/73 97 05/08/19 23:13 36.7 C 103 H 18 153/77 H 99 Laboratory Results Laboratory Results - last 24 hr 05/09/19 05:18 Sodium 141 Potassium 3.8 Chloride 110 H Carbon Dioxide 27 Anion Gap 4.0 BUN 22 H Creatinine 0.82 Est Cr Clr Drug Dosing 30.2 Est GFR ( Amer) 74.0 Est GFR (Non-Af Amer) 63.9 BUN/Creatinine Ratio 26.6 H Glucose 86 Calcium 8.5 Medications Administered Active Medications Generic Name Dose Route Start Last Admin Trade Name Freq PRN Reason Stop Dose Admin Acetaminophen 650 mg 05/05/19 20:52 Tylenol PO 06/04/19 20:51 Q4H PRN Pain or Fever Amiodarone HCl 100 mg 05/07/19 12:00 05/09/19 09:34 Cordarone PO 06/06/19 11:59 100 mg QAM DINO Administration Apixaban 2.5 mg 05/05/19 21:00 05/09/19 09:34 Eliquis PO 06/04/19 20:59 2.5 mg BID DINO Administration Fluticasone Furoate 1 puffs 05/06/19 09:00 05/09/19 09:35 Arnuity Ellipta 100mcg INH 06/05/19 08:59 Not Given QAM DINO Fluticasone Propionate 2 sprays 05/06/19 09:00 05/09/19 09:35 Flonase NA 06/05/19 08:59 Not Given QAM DINO Indapamide 1.25 mg 05/06/19 09:00 05/09/19 09:34 Lozol PO 06/05/19 08:59 1.25 mg [id number] DINO Administration Magnesium Hydroxide 30 ml 05/05/19 20:52 Milk Of Magnesia PO 06/04/19 20:51 Q12H PRN Constipation Megestrol Acetate 400 mg 05/06/19 10:05 05/09/19 09:35 Megace PO 06/06/19 10:04 400 mg QAM DINO Administration Memantine 5 mg 05/05/19 21:00 05/09/19 09:34 Namenda PO 06/04/19 20:59 5 mg BID DINO Administration Ondansetron HCl 4 mg 05/05/19 20:52 Zofran IV 06/04/19 20:51 Q6H PRN Nausea PG Care Time/CCT Total # of Minutes Spent Total Time Spent with Patient: Total time spent is greater than 50% in coordination of care (as documented) at patient's floor/unit and/or counseling patient:
--- NOTE | 2019-05-09 16:46 | Discharge Summary ---
Date of Service May 09, 2019 Admission HPI Per Admitting Provider 89 y/o F who was brought to the ED by her for c/o weakness. states that she was admitted to [facility] recently for the same issue. Her medications were changed at that time. Her weakness has continued, no better or worse. She has not fallen. She was started on something for appetite due to issues with decreased appetite and weight loss and he states that her appetite has been much improved the last week. He states she has had no c/o chest pain or other pain. Pt denies fever, SOB, chest pain, abd pain, n/v/c/d, LE pain or swelling. There is HHN on M-F. Discharge Data Allergies Allergy/AdvReac Type Severity Reaction Status Date / Time Sulfa (Sulfonamide Allergy Mild RASH Verified 05/05/19 16:26 Antibiotics) INDIGO Inhibitors Allergy Unknown Rash Verified 05/05/19 16:26 amoxicillin [From Augmentin] Allergy Unknown Diarrhea Verified 05/05/19 16:26 clavulanic acid Allergy Unknown Diarrhea Verified 05/05/19 16:26 [From Augmentin] Consultations 05/05/19 18:13 ED Decision to Admit Stat 05/05/19 20:52 Consult Cardiology Routine Consult Case Management - Discharge Planning Routine Discharge Plan Discharge Items Patient Disposition: Home - Home Health Services Reason For Visit: WEAKNESS Discharge Diagnosis: Generalized weakness with severe protein-calorie malnutrition Atrial flutter with tachybrady syndrome Advanced dementia Condition on Discharge: Fair Activity: Resume your previous activity Non-emergency contact: Primary Care Provider Call non-emergency contact if: you have any medication questions and your symptoms worsen Follow-up/Referrals: Pritesh Mckinnon MD [Primary Care Provider] - 05/19/19 3:15 pm (Please, follow up at Dr. Mckinnon's office with his associate, Vandana SALGADO, on May 19 at 3:15 pm. *If you need to change this appointment, call their office at [phone].) Diet: Regular Addtl Attending Provider Instructions: You were admitted to [facility] from May 05 to 2019 due to generalized weakness. You were noted to have ongoing tachycardia episodes with your chronic atrial flutter after recently discontinuing your metoprolol on last admission. During your admission you were reviewed by your scribing machine operator and recommended recommended switching your digoxin for amiodarone (see prescriptions below). On discussion with Dr Mckinnon and Dr Le we will also discontinue indapamide. On review by physical therapy it was recommended ongoing re habilitation at a group home to help with building back your strength but this was declined in favor of home health and physical therapy at home and a request has been made for this. Please follow up with your PCP as above. Kind regards, Dr Pritesh Mejia Pending Studies at Discharge: No Stand-Alone Forms: [facility], Smoking Cessation Medications and DC Order Prescriptions: New amiodarone 100 mg tablet 100 mg PO DAILY Qty: 30 RF: 0 Continued Eliquis 2.5 mg Tablet 2.5 mg PO AMPM RF: 0 megestrol 400 mg/10 mL (40 mg/mL) suspension 400 mg PO QAM RF: 0 Flovent HFA 220 mcg/actuation HFA aerosol inhaler 2 puffs inhalation QAM RF: 0 fluticasone propionate [Flonase Allergy Relief] 50 mcg/actuation spray,suspension 2 sprays intranasal QAM RF: 0 memantine 5 mg tablet 5 mg PO AMPM RF: 0 Discontinued indapamide 1.25 mg tablet 1.25 mg PO MOWEFR RF: 0 digoxin 125 mcg (0.125 mg) tablet 125 mcg PO QAM RF: 0 Discharge Orders: Discharge Order (Routine); Ordered 05/09/19 Ordered By: Pritesh Mejia Admission Data Admit Date/Time: 05/05/19 18:51 Attending Provider: Pritesh Mejia Admit Provider: Carrol Servin Primary Care Provider: Pritesh Mckinnon Other Providers: Carrol Servin ; Fernando Baker ; [facility]
== END 2019-05-09 17:36 | disposition home health service (06) | DRG 640 ==
LOC: ED 14:29 → SUATTDRO 18:51 → 2S 18:51